=== PATIENT | female | born 1985 ===

== ENCOUNTER 2019-07-15 13:39 | Emergency (ER) | payer SELFPAY ==
--- NOTE | 2019-07-15 15:18 | ER Document Report ---
ED Extremity Problem, Lower - General Chief Complaint: Leg Pain Stated Complaint: MUSCLE PAIN/MEDICATION REFILL Time Seen by Provider: 07/15/19 15:14 Primary Care Provider: SANDY MCCANN PA-C [Primary Care Provider] - Follow up as needed Mode of Arrival: Medic Information source: Patient, Friend TRAVEL OUTSIDE OF THE [place] IN LAST 30 DAYS: No - HPI Patient complains to provider of: Other - leg spasms Location: Leg - [facility] staying [facility] and is accompanied by classification case manager. overhead line worker states pt. has been out of her clozapine for several days now and is requesting a refill as she doesn't see her psychiatrist until 07/26. - Related Data Allergies/Adverse Reactions: Penicillins Allergy (Verified 07/15/19 14:42) Hives Sulfa (Sulfonamide Antibiotics) Adverse Reaction (Verified 07/15/19 14:43) Past Medical History - Social History Smoking Status: Never Smoker Chew tobacco use (# tins/day): No Frequency of alcohol use: None Drug Abuse: None Family History: None Patient has suicidal ideation: No Patient has homicidal ideation: No Neurological Medical History: Reports: Hx Seizures - childhood Psychiatric Medical History: Reports: Hx Bipolar Disorder Review of Systems - Review of Systems Constitutional: No symptoms reported EENT: No symptoms reported Cardiovascular: No symptoms reported Respiratory: No symptoms reported Gastrointestinal: No symptoms reported Musculoskeletal: See HPI, Muscle pain - spasms Neurological/Psychological: No symptoms reported -: Yes All other systems reviewed and negative Physical Exam - Vital signs Vitals: Temp Pulse Resp BP Pulse Ox 98.4 F 87 18 139/95 H 98 07/15/19 13:57 07/15/19 13:57 07/15/19 13:57 07/15/19 13:57 07/15/19 13:57 - General General appearance: Appears well In distress: None - Respiratory Respiratory status: No respiratory distress Breath sounds: Normal - Cardiovascular Rhythm: Regular Heart sounds: Normal auscultation Murmur: No - Extremities General upper extremity: Normal inspection, Nontender General lower extremity: Normal inspection, Nontender - Neurological Neuro grossly intact: Yes Course - Re-evaluation Re-evalutation: 07/15/19 16:19 pt's exam unchanged at d/c -- will refill clozapine and classification case manager will take her back to retirement - Vital Signs Vital signs: Temp Pulse Resp BP Pulse Ox 98.4 F 87 18 139/95 H 98 07/15/19 13:57 07/15/19 13:57 07/15/19 13:57 07/15/19 13:57 07/15/19 13:57 Discharge - Discharge Clinical Impression: Leg muscle spasm Qualifiers: Laterality: bilateral Qualified Code(s): M62.838 - Other muscle spasm Condition: Stable Disposition: HOME, SELF-CARE Additional Instructions: rest, take meds as prescribed, return if worse Prescriptions: Clozapine [Clozapine Odt] 200 mg PO DAILY #10 tab.rapdis Referrals: SANDY MCCANN PA-C [Primary Care Provider] - Follow up as needed
[2019-07-15 16:42] VITALS: BP 121/77
== END 2019-07-15 16:36 | disposition home or self-care (01) ==
LOC: ER 13:39
DX: M62.838 Other muscle spasm (principal); F31.9 Bipolar disorder, unspecified; Z76.0 Encounter for issue of repeat prescription; Z88.0 Allergy status to penicillin; Z88.2 Allergy status to sulfonamides
CPT/HCPCS: 99283

== ENCOUNTER 2019-07-18 14:41 | Emergency (ER) | payer MEDICAID ==
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
[2019-07-18 16:38] LABS: APPEARANCE,URINE CLEAR; BILIRUBIN,URINE NEGATIVE (NEGATIVE); COLOR,URINE YELLOW; GLUCOSE, URINE NEGATIVE (NEGATIVE); KETONES,URINE TRACE mg/dL (NEGATIVE); LEUKOCYTE ESTERASE,URINE TRACE (NEGATIVE); NITRITE,URINE NEGATIVE (NEGATIVE); PROTEIN,URINE NEGATIVE (NEGATIVE); URINE SPECIFIC GRAVITY 1.019; UROBILINOGEN,URINE NEGATIVE mg/dL (<2.0)
[2019-07-18 16:56] LABS: URINE AMPHETAMINES SCREEN NEGATIVE; URINE BARBITURATES SCREEN NEGATIVE; URINE BENZODIAZEPINES SCREEN NEGATIVE; URINE COCAINE SCREEN NEGATIVE; URINE MARIJUANA (THC) SCREEN NEGATIVE; URINE METHADONE SCREEN NEGATIVE; URINE PHENCYCLIDINE SCREEN NEGATIVE
[2019-07-18 17:25] LABS: ABSOLUTE BASOPHILS # (AUTO) 0.1 10^3/uL (0.0-0.2); ABSOLUTE EOSINOPHILS # (AUTO) 0.1 10^3/uL (0.0-0.6); ABSOLUTE LYMPHOCYTES (AUTO) 2.7 10^3/uL (0.5-4.7); ABSOLUTE MONOCYTES (AUTO) 0.6 10^3/uL (0.1-1.4); ABSOLUTE NEUT (AUTO) 3.2 10^3/uL (1.7-8.2); BASOPHILS % (AUTO) 1.6 % (0-2); EOSINOPHILS % (AUTO) 1.3 % (0-6); HEMATOCRIT 37.9 % (36.0-47.0); HEMOGLOBIN 12.3 g/dL (12.0-15.5); LYMPHOCYTES % (AUTO) 40.6 % (13-45); MEAN CORPUSCULAR HEMOGLOBIN 29.1 pg (27.0-33.4); MEAN CORPUSCULAR HGB CONC 32.5 g/dL (32.0-36.0); MEAN CORPUSCULAR VOLUME 89 fl (80-97); MONOCYTES % (AUTO) 8.5 % (3-13); PLATELET COUNT 205 10^3/uL (150-450); RED BLOOD COUNT 4.24 10^6/uL (3.72-5.28); RED CELL DISTRIBUTION WIDTH 13.8 % (11.5-14.0); TOTAL CELLS COUNTED % (AUTO) 100 %; WHITE BLOOD COUNT 6.7 10^3/uL (4.0-10.5)
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
[2019-07-18 17:55] LABS: ALBUMIN 4.2 g/dL (3.5-5.0); ALKALINE PHOSPHATASE 56 U/L (38-126); ANION GAP 9 (5-19); ASPARTATE AMINO TRANSFERASE 25 U/L (14-36); BILIRUBIN,DIRECT 0.1 mg/dL (0.0-0.4); BILIRUBIN,TOTAL 0.4 mg/dL (0.2-1.3); BLOOD UREA NITROGEN 14 mg/dL (7-20); CALCIUM 9.8 mg/dL (8.4-10.2); CARBON DIOXIDE 27 mmol/L (22-30); CHLORIDE 103 mmol/L (98-107); GLUCOSE 79 mg/dL (75-110); POTASSIUM 4.2 mmol/L (3.6-5.0); TOTAL PROTEIN 7.3 g/dL (6.3-8.2)
[2019-07-18 17:58] LABS: ACETAMINOPHEN < 10 ug/mL (10-30); ALCOHOL < 10 mg/dL (NONE DETECTED); SALICYLATE < 1.0 mg/dL (2.0-20.0)
--- NOTE | 2019-07-18 20:58 | EKG REPORT ---
SEVERITY:- NORMAL ECG - SINUS RHYTHM : Confirmed by: Kiana Toribio MD 18-Jul-2019 20:57:49
[2019-07-19] MEDS: LORATADINE 10 MG TABLET PO SCH ×2 (01:04→09:46)
[2019-07-19] MEDS ORDERED: (PENDING PHARMACY ID) (Divalproex Sodium [Depakote] 500 MG) PO SCH (16:15)
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
[2019-07-19] MEDS: POLYETHYLENE GLYCOL 3350 POWDER 17 GM/1 PACKET PO SCH (17:44)
[2019-07-19] MEDS: ZINC OXIDE 20% OINTMENT 28.35 GM TP SCH (17:44)
[2019-07-19] MEDS: GLYCOPYRROLATE 1 MG TABLET PO SCH (17:45)
[2019-07-19] MEDS: FAMOTIDINE 20 MG TABLET PO SCH (17:45)
[2019-07-19] MEDS: LAMOTRIGINE 100 MG TABLET PO SCH (21:34)
[2019-07-19] MEDS: ARIPIPRAZOLE 5 MG TABLET PO SCH (21:34)
[2019-07-19] MEDS: CLOZAPINE 100 MG TABLET PO SCH (21:35)
[2019-07-19] MEDS: DOCUSATE SODIUM 100 MG CAPSULE PO SCH (21:35)
[2019-07-19] MEDS: DIVALPROEX SODIUM 250 MG TABLET.DR PO SCH (21:35)
[2019-07-19] MEDS: OXYBUTYNIN CHLORIDE 5 MG TABLET PO SCH (21:35)
[2019-07-19] MEDS: LAMOTRIGINE 25 MG TAB.CHEW PO SCH (21:36)
[2019-07-19] MEDS: SENNOSIDES/DOCUSATE 8.6-50 MG 1 EACH TABLET PO SCH (21:36)
[2019-07-19] MEDS ORDERED: (PENDING PHARMACY ID) (Oxybutynin Chloride [Oxybutynin Chloride Er] 15 MG) PO SCH (22:00)
[2019-07-19] MEDS ORDERED: (PENDING PHARMACY ID) (Lamotrigine [Lamictal] 25 MG) PO SCH (22:00)
[2019-07-19] MEDS ORDERED: ARIPIPRAZOLE 20 MG PO SCH (22:00)
[2019-07-19] MEDS ORDERED: (PENDING PHARMACY ID) (Divalproex Sodium [Depakote] 1,500 MG) PO SCH (22:00)
[2019-07-19] MEDS ORDERED: (PENDING PHARMACY ID) (Sennosides [Senokot] 17.2 MG) PO SCH (22:00)
[2019-07-19] MEDS ORDERED: (PENDING PHARMACY ID) (Lamotrigine [Lamictal] 200 MG) PO SCH (22:00)
[2019-07-19] MEDS ORDERED: CLOZAPINE 200 MG PO SCH (22:00)
[2019-07-20] MEDS: OXYBUTYNIN CHLORIDE 5 MG TABLET PO SCH ×3 (06:00→22:48)
[2019-07-20] MEDS: ZINC OXIDE 20% OINTMENT 28.35 GM TP SCH ×2 (10:06→19:10)
[2019-07-20] MEDS: DIVALPROEX SODIUM 250 MG TABLET.DR PO SCH ×2 (10:32→21:31)
[2019-07-20] MEDS: FAMOTIDINE 20 MG TABLET PO SCH (10:32)
[2019-07-20] MEDS: POLYETHYLENE GLYCOL 3350 POWDER 17 GM/1 PACKET PO SCH (10:33)
[2019-07-20] MEDS: LORATADINE 10 MG TABLET PO SCH (10:33)
[2019-07-20] MEDS: GLYCOPYRROLATE 1 MG TABLET PO SCH ×3 (10:34→19:25)
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
--- NOTE | 2019-07-20 14:15 | ER Document Report ---
Doctor's Note Notes: 07/20/19 14:13 Patient is alert and oriented 4. Nurse's notes reviewed. vss. mood is euthymic with normal affect. Patient denies any suicidal, homicidal ideations, intent, plan needs. Patient denies any auditory and visual hallucinations, delusions none noted. Thought processes are guarded but not organized. Conve rsational speech within normal limits for rate, tone, prosody. Intellectual abilities are estimated within average range. Attention and focus are fair. Insight, judgment, impulse control are poor. Awaiting for placement which will likely happen tomorrow. GENERAL: Well-appearing, well-nourished and in no acute distress. HEAD: Atraumatic, normocephalic. EYES: Pupils equal round and reactive to light, extraocular movements intact, conjunctiva are normal. NECK: Normal range of motion, supple without lymphadenopathy LUNGS: Breath sounds clear to auscultation bilaterally and equal. No wheezes rales or rhonchi. HEART: Regular rate and rhythm without murmurs ABDOMEN: Soft, nontender, nondistended abdomen. No guarding, no rebound. No masses appreciated. Musculoskeletal: Normal range of motion, no pitting or edema. No cyanosis. NEUROLOGICAL: Cranial nerves grossly intact. Normal speech, normal gait. Normal sensory, motor exams PSYCH: Normal mood, normal affect. SKIN: Warm, Dry, normal turgor, no rashes or lesions noted.
[2019-07-20] MEDS ORDERED: IBUPROFEN 800 MG TABLET PO ONE (17:33)
[2019-07-20] MEDS ORDERED: ACETAMINOPHEN 325 MG TABLET PO ONE (17:33)
--- NOTE | 2019-07-20 17:44 | ER Document Report ---
Doctor's Note Notes: 07/20/192044 1730-reported fever 102.8, patient started with the Clazuril 200 mg p.o. last night, this was the first time she was given this over 2 weeks. 1 of the common side effects of taking this medication is fever however will work-up fever as well as treat with ibuprofen and Tylenol accordingly. Awaiting for rapid strep, urinalysis and chest x-ray. Patient does appear to be lethargic, will reassess after fever has been reduced. Aside from temperature, vital signs are stable. On reevaluation patient's temperature reduced down to 100.9,Patient reevaluated at bedside. rapid strep was positive, will be treated accordingly, CBC and CMP unremarkable, chest x-ray unremarkable. Fever reduced, patient became more alert. Disposition given to Yong Thapa at 201407/22/19 13:51
[2019-07-20] MEDS ORDERED: ACETAMINOPHEN SUSP 160 MG/5 ML ORAL SYRING PO ONE (18:17)
[2019-07-20] MEDS ORDERED: ACETAMINOPHEN 650 MG SUPP.RECT PR ONE (18:18)
--- NOTE | 2019-07-20 18:56 | RADIOLOGY REPORT (SQ) ---
EXAM DESCRIPTION: CHEST SINGLE VIEW COMPLETED DATE/TIME: 07/20/2019 5:51 pm REASON FOR STUDY: Fever of unknown source COMPARISON: None. EXAM PARAMETERS: NUMBER OF VIEWS: One view. TECHNIQUE: Single frontal radiographic view of the chest acquired. RADIATION DOSE: NA LIMITATIONS: None. FINDINGS: LUNGS AND PLEURA: Low lung volumes. No infiltrate, effusion, or mass. MEDIASTINUM AND HILAR STRUCTURES: No masses. Contour normal. HEART AND VASCULAR STRUCTURES: Heart normal in size. Normal vasculature. BONES: No acute findings. HARDWARE: None in the chest. OTHER: No other significant finding. IMPRESSION: Low lung volumes. No acute cardiopulmonary finding. TECHNICAL DOCUMENTATION: JOB ID: [id number] [employer]- All Rights Reserved Reading location - IP/workstation name: [email or web address]
[2019-07-20 19:15] LABS: ABSOLUTE EOSINOPHILS # (AUTO) 0.1 10^3/uL (0.0-0.6); ABSOLUTE LYMPHOCYTES (AUTO) 1.8 10^3/uL (0.5-4.7); ABSOLUTE NEUT (AUTO) 7.4 10^3/uL (1.7-8.2); BASOPHILS % (AUTO) 0.3 % (0-2); EOSINOPHILS % (AUTO) 1.1 % (0-6); HEMATOCRIT 40.9 % (36.0-47.0); HEMOGLOBIN 13.4 g/dL (12.0-15.5); LYMPHOCYTES % (AUTO) 17.1 % (13-45); MEAN CORPUSCULAR HEMOGLOBIN 28.9 pg (27.0-33.4); MEAN CORPUSCULAR HGB CONC 32.8 g/dL (32.0-36.0); MEAN CORPUSCULAR VOLUME 88 fl (80-97); MONOCYTES % (AUTO) 9.5 % (3-13); PLATELET COUNT 199 10^3/uL (150-450); RED BLOOD COUNT 4.64 10^6/uL (3.72-5.28); RED CELL DISTRIBUTION WIDTH 13.6 % (11.5-14.0); TOTAL CELLS COUNTED % (AUTO) 100 %; WHITE BLOOD COUNT 10.3 10^3/uL (4.0-10.5)
[2019-07-20 19:16] LABS: VENOUS BLOOD BASE EXCESS 3.4 mmol/L; VENOUS BLOOD HCO3 28.4 mmol/L (20-32); VENOUS BLOOD PCO2 44.1 mmHg (35-63); VENOUS BLOOD PH 7.43 (7.30-7.42)
[2019-07-20 19:33] LABS: ALBUMIN 3.9 g/dL (3.5-5.0); ALKALINE PHOSPHATASE 64 U/L (38-126); ANION GAP 8 (5-19); ASPARTATE AMINO TRANSFERASE 27 U/L (14-36); BILIRUBIN,DIRECT 0.2 mg/dL (0.0-0.4); BILIRUBIN,TOTAL 0.4 mg/dL (0.2-1.3); BLOOD UREA NITROGEN 9 mg/dL (7-20); CALCIUM 9.3 mg/dL (8.4-10.2); CARBON DIOXIDE 27 mmol/L (22-30); CHLORIDE 102 mmol/L (98-107); GLUCOSE 100 mg/dL (75-110); POTASSIUM 4.3 mmol/L (3.6-5.0); TOTAL PROTEIN 7.1 g/dL (6.3-8.2)
[2019-07-20] MEDS ORDERED: AZITHROMYCIN 250 MG TABLET PO ONE (20:26)
[2019-07-20] MEDS: SENNOSIDES/DOCUSATE 8.6-50 MG 1 EACH TABLET PO SCH (21:20)
[2019-07-20] MEDS: ARIPIPRAZOLE 5 MG TABLET PO SCH (21:30)
[2019-07-20] MEDS: DOCUSATE SODIUM 100 MG CAPSULE PO SCH (21:31)
[2019-07-20] MEDS: LAMOTRIGINE 25 MG TAB.CHEW PO SCH (21:31)
[2019-07-20] MEDS: CLOZAPINE 100 MG TABLET PO SCH (21:31)
[2019-07-20] MEDS: LAMOTRIGINE 100 MG TABLET PO SCH (21:31)
[2019-07-20 22:55] LABS: APPEARANCE,URINE CLEAR; BILIRUBIN,URINE NEGATIVE (NEGATIVE); COLOR,URINE YELLOW; GLUCOSE, URINE NEGATIVE (NEGATIVE); KETONES,URINE 20 mg/dL (NEGATIVE); LEUKOCYTE ESTERASE,URINE NEGATIVE (NEGATIVE); NITRITE,URINE NEGATIVE (NEGATIVE); PROTEIN,URINE NEGATIVE (NEGATIVE); URINE SPECIFIC GRAVITY 1.011; UROBILINOGEN,URINE NEGATIVE mg/dL (<2.0)
[2019-07-21] MEDS: OXYBUTYNIN CHLORIDE 5 MG TABLET PO SCH (05:01)
[2019-07-21 11:33] VITALS: BP 126/82
[2019-07-21] MEDS: FAMOTIDINE 20 MG TABLET PO SCH (12:07)
[2019-07-21] MEDS: LORATADINE 10 MG TABLET PO SCH (12:07)
[2019-07-21] MEDS: DIVALPROEX SODIUM 250 MG TABLET.DR PO SCH (12:07)
[2019-07-21] MEDS: GLYCOPYRROLATE 1 MG TABLET PO SCH (12:08)
[2019-07-21] MEDS: ZINC OXIDE 20% OINTMENT 28.35 GM TP SCH (12:09)
[2019-07-21] MEDS: POLYETHYLENE GLYCOL 3350 POWDER 17 GM/1 PACKET PO SCH (12:10)
--- NOTE | 2019-07-21 13:35 | ER Document Report ---
Doctor's Note Notes: 07/21/19 13:30 PHYSICAL EXAMINATION: GENERAL: Well-appearing and in no acute distress. HEAD: Atraumatic, normocephalic. EYES: Left eye strabismus, sclera anicteric, conjunctiva are normal. ENT: nares patent, oropharynx clear without exudates. Moist mucous membranes. NECK: Normal range of motion, supple without lymphadenopathy LUNGS: CTAB and equal. No wheezes rales or rhonchi. HEART: Regular rate and rhythm without murmurs ABDOMEN: Soft, no tenderness. No guarding, no rebound EXTREMITIES: Normal range of motion, no pitting edema. No cyanosis. BACK: No midline tenderness, no CVA tenderness. NEUROLOGICAL: Cranial nerves grossly intact. PSYCH: Normal mood, normal affect. SKIN: Warm, Dry, normal turgor, no rashes or lesions noted Patient resting calmly in room. Patient denies any complaints. Patient states that she is hungry and is awaiting her lunch tray. Patient denies any suicidal or homicidal ideation. Patient reports feeling drowsy after taking her medications. Vital signs reviewed as well as diagnostic test results. Mental health team feels that patient's drowsiness is attributed to the side effects of her restarting her medications. Patient appears medically clear for discharge transfer her mental health recommendations. Mental health team feels that patient is stable for discharge at this time. Patient does have a refill of her prescription for her clozaril and the pharmacy has agreed to fill this medication which is what precipitated her presenting to the emergency depar tment, after she became aggressive after being off of her usual medications. Patient's care providers at [facility] are agreeable with discharge plan of care and will be here to pick patient up around 130. Patient does have an appointment with her mental health provider see [facility] in [address] Aceves who is in agreement with this plan of care.
[2019-07-21] MEDS ORDERED: KETOCONAZOLE 2% SHAMPOO 120 ML BOTTLE TP SCH (18:00)
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
== END 2019-07-21 16:40 | disposition home or self-care (01) ==
LOC: ER 14:41
DX: J02.0 Streptococcal pharyngitis (principal); F25.0 Schizoaffective disorder, bipolar type; M62.838 Other muscle spasm; F91.9 Conduct disorder, unspecified; R09.89 Other specified symptoms and signs involving the circulatory and respiratory systems; Z86.59 Personal history of other mental and behavioral disorders
CPT/HCPCS: 93005; 99285; 36415; 87040; 87880; 80307 ×4; 83735; 84703; 85025; 80053; 80175; 81001; 80164; 82803; 83605; 93010; J3490 ×30; Q0144

== ENCOUNTER 2019-07-26 13:56 | Emergency (ER) | payer SELFPAY ==
--- NOTE | 2019-07-26 14:23 | ER Document Report ---
ED Medical Screen (RME) - General Chief Complaint: Medication Refill Stated Complaint: ALTERED MENTAL STATUS Time Seen by Provider: 07/26/19 14:13 Primary Care Provider: SANDY MCCANN PA-C [Primary Care Provider] - Follow up as needed Notes: Patient is a 33-year-old female who presents to the emergency department after becoming agitated at her [facility]. Patient was just recently here in the hospital and evaluated by mental health. She was discharged 5 days ago. Apparently her clonazepine cannot be refilled because she was dismissed from the run program. She has not been taking her clonazepine since she was discharged from [facility]. Exam: Talkative. I have greeted and performed a rapid initial assessment of this patient. A comprehensive ED assessment and evaluation of the patient, analysis of test results and completion of medical decision making process will be conducted by an additional ED providers. TRAVEL OUTSIDE OF THE [place] IN LAST 30 DAYS: No - Related Data Allergies/Adverse Reactions: Penicillins Allergy (Verified 07/26/19 14:11) Hives Sulfa (Sulfonamide Antibiotics) Adverse Reaction (Verified 07/26/19 14:11) Home Medications: see list on chart Past Medical History - Social History Chew tobacco use (# tins/day): No Frequency of alcohol use: None Drug Abuse: None Neurological Medical History: Reports: Hx Seizures - childhood Psychiatric Medical History: Reports: Hx Bipolar Disorder Doctor's Discharge - Discharge Referrals: SANDY MCCANN PA-C [Primary Care Provider] - Follow up as needed
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
[2019-07-26 17:54] LABS: ABSOLUTE BASOPHILS # (AUTO) 0.1 10^3/uL (0.0-0.2); ABSOLUTE EOSINOPHILS # (AUTO) 0.1 10^3/uL (0.0-0.6); ABSOLUTE LYMPHOCYTES (AUTO) 3.4 10^3/uL (0.5-4.7); ABSOLUTE MONOCYTES (AUTO) 0.6 10^3/uL (0.1-1.4); ABSOLUTE NEUT (AUTO) 3.2 10^3/uL (1.7-8.2); BASOPHILS % (AUTO) 0.8 % (0-2); EOSINOPHILS % (AUTO) 1.6 % (0-6); HEMATOCRIT 36.2 % (36.0-47.0); HEMOGLOBIN 11.6 g/dL (12.0-15.5); LYMPHOCYTES % (AUTO) 45.9 % (13-45); MEAN CORPUSCULAR HEMOGLOBIN 28.3 pg (27.0-33.4); MEAN CORPUSCULAR HGB CONC 32.2 g/dL (32.0-36.0); MEAN CORPUSCULAR VOLUME 88 fl (80-97); MONOCYTES % (AUTO) 8.7 % (3-13); PLATELET COUNT 245 10^3/uL (150-450); RED BLOOD COUNT 4.12 10^6/uL (3.72-5.28); RED CELL DISTRIBUTION WIDTH 13.7 % (11.5-14.0); TOTAL CELLS COUNTED % (AUTO) 100 %; WHITE BLOOD COUNT 7.5 10^3/uL (4.0-10.5)
--- NOTE | 2019-07-26 18:01 | RADIOLOGY REPORT (SQ) ---
EXAM DESCRIPTION: SOFT TISSUE NECK COMPLETED DATE/TIME: 07/26/2019 5:41 pm REASON FOR STUDY: freq cough, hx strep COMPARISON: None. NUMBER OF VIEWS: Two views. TECHNIQUE: AP and lateral radiographic image of the soft tissues of the neck. LIMITATIONS: None. FINDINGS: EPIGLOTTIS: Normal. Contour normal. Aryepiglottic folds normal. PREVERTEBRAL SOFT TISSUES: Normal. No soft tissue swelling. SUBGLOTTIC AREA: Normal. No narrowing. RETROPHARYNGEAL SPACE: Normal. No soft tissue masses. BONES: No significant findings. LUNG APICES: Pulmonary vascular congestion. OTHER: No radiopaque foreign body. No other significant finding. IMPRESSION: Pulmonary vascular congestion. No acute findings in the neck. TECHNICAL DOCUMENTATION: JOB ID: [id number] 1926[employer]- All Rights Reserved Reading location - IP/workstation name: [email or web address]
[2019-07-26 18:14] LABS: ALKALINE PHOSPHATASE 56 U/L (38-126); ANION GAP 9 (5-19); ASPARTATE AMINO TRANSFERASE 27 U/L (14-36); BILIRUBIN,DIRECT 0.1 mg/dL (0.0-0.4); BILIRUBIN,TOTAL 0.4 mg/dL (0.2-1.3); BLOOD UREA NITROGEN 12 mg/dL (7-20); CALCIUM 9.5 mg/dL (8.4-10.2); CARBON DIOXIDE 26 mmol/L (22-30); CHLORIDE 103 mmol/L (98-107); GLUCOSE 82 mg/dL (75-110); TOTAL PROTEIN 7.2 g/dL (6.3-8.2)
[2019-07-26 18:15] LABS: ACETAMINOPHEN < 10 ug/mL (10-30); ALCOHOL < 10 mg/dL (NONE DETECTED); SALICYLATE < 1.0 mg/dL (2.0-20.0)
[2019-07-26] MEDS: GLYCOPYRROLATE 1 MG TABLET PO SCH (19:02)
[2019-07-26] MEDS ORDERED: BENZONATATE 100 MG CAPSULE PO ONE (20:14)
[2019-07-26] MEDS ORDERED: ZIPRASIDONE MESYLATE INJ/PF 20 MG SDV IM ONE (20:37)
[2019-07-26 21:40] LABS: APPEARANCE,URINE SLIGHTLY-CLOUDY; BILIRUBIN,URINE NEGATIVE (NEGATIVE); COLOR,URINE YELLOW; GLUCOSE, URINE NEGATIVE (NEGATIVE); KETONES,URINE TRACE mg/dL (NEGATIVE); LEUKOCYTE ESTERASE,URINE TRACE (NEGATIVE); NITRITE,URINE NEGATIVE (NEGATIVE); PROTEIN,URINE NEGATIVE (NEGATIVE); URINE SPECIFIC GRAVITY 1.012; UROBILINOGEN,URINE NEGATIVE mg/dL (<2.0)
[2019-07-26 21:52] LABS: URINE AMPHETAMINES SCREEN NEGATIVE; URINE BARBITURATES SCREEN NEGATIVE; URINE BENZODIAZEPINES SCREEN NEGATIVE; URINE COCAINE SCREEN NEGATIVE; URINE MARIJUANA (THC) SCREEN NEGATIVE; URINE METHADONE SCREEN NEGATIVE; URINE PHENCYCLIDINE SCREEN NEGATIVE
[2019-07-27] MEDS: ARIPIPRAZOLE 5 MG TABLET PO SCH ×2 (01:27→21:22)
[2019-07-27] MEDS: CLOZAPINE 100 MG TABLET PO SCH ×2 (01:27→21:22)
[2019-07-27] MEDS: LAMOTRIGINE 100 MG TABLET PO SCH ×2 (01:27→21:24)
[2019-07-27] MEDS: DIVALPROEX SODIUM 250 MG TABLET.DR PO SCH ×3 (01:27→21:21)
[2019-07-27] MEDS: DOCUSATE SODIUM 100 MG CAPSULE PO SCH ×2 (01:27→21:21)
[2019-07-27] MEDS: LAMOTRIGINE 25 MG TAB.CHEW PO SCH ×3 (01:28→21:42)
[2019-07-27] MEDS ORDERED: ZIPRASIDONE MESYLATE INJ/PF 20 MG SDV IM ONE ×2 (02:04→21:39)
--- NOTE | 2019-07-27 07:44 | EKG REPORT ---
SEVERITY:- ABNORMAL ECG - SINUS RHYTHM MILD DIFFUSE NONSPECIFIC ST CHANGES : Confirmed by: David Mcguire MD 27-Jul-2019 07:43:47
[2019-07-27] MEDS: FAMOTIDINE 20 MG TABLET PO SCH (09:28)
[2019-07-27] MEDS: GLYCOPYRROLATE 1 MG TABLET PO SCH ×3 (09:28→17:05)
--- NOTE | 2019-07-27 12:11 | ER Document Report ---
Doctor's Note Notes: 07/27/19 12:04 33-year-old female IVC need for acute schizophrenic disorder, intellectual disability, PTSD. Vital signs stable. Nurse's, provider's and mental health note reviewed. afebrile. Clinical examination unremarkable. Patient denies any medical needs at this time. Patient is sitting in bed and watching TV at this time. PHYSICAL EXAMINATION: reviewed vital signs by RN GENERAL: Well-appearing, well-nourished and in no acute distress. HEAD: Atraumatic, normocephalic. EYES: Pupils equal round and reactive to light, extraocular movements intact, conjunctiva are normal. ENT: Nares patent, oropharynx clear without exudates. Moist mucous membranes. NECK: Normal range of motion, supple without lymphadenopathy LUNGS: Breath sounds clear to auscultation bilaterally and equal. No wheezes rales or rhonchi. HEART: Regular rate and rhythm without murmurs ABDOMEN: Soft, nontender, nondistended abdomen. No guarding, no rebound. No masses appreciated. Musculoskeletal: Normal range of motion, no pitting or edema. No cyanosis. NEUROLOGICAL: Cranial nerves grossly intact. Normal speech, normal gait. Normal sensory, motor exams PSYCH: Normal mood, normal affect. SKIN: Warm, Dry, normal turgor, no rashes or lesions noted.
[2019-07-28] MEDS: GLYCOPYRROLATE 1 MG TABLET PO SCH ×4 (10:21→18:14)
[2019-07-28] MEDS: DIVALPROEX SODIUM 250 MG TABLET.DR PO SCH ×2 (10:21→23:30)
[2019-07-28] MEDS: FAMOTIDINE 20 MG TABLET PO SCH (10:22)
--- NOTE | 2019-07-28 12:17 | ER Document Report ---
Doctor's Note Notes: 07/28/19 11:30 PHYSICAL EXAMINATION: GENERAL: Well-appearing and in no acute distress. HEAD: Atraumatic, normocephalic. EYES: extraocular movements intact, sclera anicteric, conjunctiva are normal. ENT: nares patent, Moist mucous membranes. NECK: Normal range of motion, supple without lymphadenopathy LUNGS: CTAB and equal. No wheezes rales or rhonchi. HEART: Regular rate and rhythm without murmurs ABDOMEN: Soft, no tenderness. No guarding, no rebound EXTREMITIES: Normal range of motion BACK: No midline tenderness, no step-off or deformity. NEUROLOGICAL: Cranial nerves grossly intact. Normal speech. Normal gait. PSYCH: Normal mood, normal affect. Patient with tangential speech, no psychomotor agitation SKIN: Warm, Dry, normal turgor, no rashes or lesions noted 07/28/19 12:10 Reviewed patient's diagnostic evaluation laboratory tests as well as vital signs and nursing note. Patient stable for discharge or transfer pending psychiatric consultation. Spoke with pharmacy staff about patient's medication Clozaril. Patient has been off of medication for 2 weeks aside from a single dose when she was seen in the ER on 07/20/2019. Patient has reportedly been dropped from the our EMS program and is in the process of getting reenrolled. Pharmacy staff states that they cannot give any recommendations about what to start the drug dose at at this time without consultation with the button clamper. Pharmacy staff recommend consultation with patient's prescribing doctor for recommendations. Mental health team states that patient was not given medication last night as she refused medication. 07/28/19 12:33 Spoke with Constanza Yun of the nurses at [facility] about patient's prescription for her clozapine. Constanza states that patient was just established as a new patient there 3 days ago. She further states that prescription was advised for patient to take clozapine 100 mg for a week and then increase to 200 mg thereafter. States that if we can fax her patient's most recent CBC she can look at getting patient reenrolled in the rems program because she needs to have been transferred from her prior facility to their facility so that she can continue to get her prescription. Toy with the mental health team advised of this and order will be placed for patient's clozapine to be given at 100 mg for 1 week and then increase to 200 mg thereafter. 07/28/19 12:51 Spoke with Constanza teran at [facility] who states that patient is a registered in the our EMS program with [facility] and that [facility] should be able to fill her prescription as written. 07/28/19 17:55 Patient refusing to take her evening dose of Robinul, spoke with pharmacy staff about what dose could be given IM as patient typically takes 2 mg 3 times daily. Pharmacist was not certain on the conversion but advised giving 0.2 mg IM.
--- NOTE | 2019-07-28 16:48 | PSYCHOLOGICAL NOTE ---
Psych Note - Psych Note Date seen by psych provider: 07/28/19 Psych Note: Patient has continued to be unable to achieve stability (patient has been here since 07/26/2019) due to not receiving evening doses of medications. Patient is currently under IVC paperwork. Patient is unable to refuse medications. In order to achieve stabilization the patient must receive this medication; please wake patient in order to provide this medication. Unfortunately, this patient is unable to go inpatient psychiatric treatment to standard psychiatric hospitals due to her mental health and intellectual disability. Stabilization must occur here in the emergency department with plan to discharge to her [facility]. The behavioral health team has been working diligently with [facility], attending physicians, and pharmacy in order to ensure the patient is able to continue taking her prescribed medications she was stabilized on in [facility]. Clinician notes patient was discharged approximately 3 to 4 weeks ago from [facility] on this medication. Unfortunately, when [place] new [place] (patient [place] a perdue of [place]), the REMS program that is needed to be transferred to her new location which did not occur in a timely fashion.
[2019-07-28] MEDS ORDERED: GLYCOPYRROLATE INJ 0.4 MG/2 ML VIAL IM ONE (17:53)
[2019-07-28] MEDS ORDERED: CLOZAPINE 100 MG TABLET PO SCH (22:00)
[2019-07-28] MEDS: LAMOTRIGINE 100 MG TABLET PO SCH (23:30)
[2019-07-28] MEDS: DOCUSATE SODIUM 100 MG CAPSULE PO SCH (23:30)
[2019-07-28] MEDS: ARIPIPRAZOLE 5 MG TABLET PO SCH (23:30)
[2019-07-28] MEDS: LAMOTRIGINE 25 MG TAB.CHEW PO SCH (23:30)
[2019-07-29] MEDS ORDERED: LORAZEPAM INJ 2 MG/1 ML VIAL IM ONE (00:07)
[2019-07-29] MEDS ORDERED: ZIPRASIDONE MESYLATE INJ/PF 20 MG SDV IM ONE (00:08)
--- NOTE | 2019-07-29 00:10 | ER Document Report ---
Doctor's Note Notes: 07/29/19 00:09 Notified by nursing that patient is still extremely agitated. She is still talking to herself, yelling out intermittently. She is spitting out all of her medications, despite multiple attempts to get her to take them. Decision was made to proceed with Geodon 20 mill grams IM, Ativan 2 mg IM. Restraints r eordered, will reevaluate.
[2019-07-29] MEDS: DIVALPROEX SODIUM 250 MG TABLET.DR PO SCH (10:08)
[2019-07-29] MEDS: FAMOTIDINE 20 MG TABLET PO SCH (10:08)
[2019-07-29] MEDS: GLYCOPYRROLATE 1 MG TABLET PO SCH ×3 (10:08→17:58)
--- NOTE | 2019-07-29 11:15 | ER Document Report ---
Doctor's Note Notes: 07/29/19 12:15 S: Patient in the emergency department after 58 hours after she presented with altered mental status and acute decline in her schizophrenia. She was evaluated by psychiatry when she came to the emergency department on July 26. She has been without her psychotropic medications for almost 3 weeks now. She has an intellectual delays that she is monitored closely by APS. She states that she is doing well this morning and that she has no SI, HI, or hallucinations. She difficult to elicit a history from as she moves from topic to topic fairly quickly and avoids answering quite a few questions for me. There is been difficulty getting her to take her Clozaril particularly overnight. Last night she had to be placed in soft restraints and had to be given Geodon and Ativan as she became aggressive with staff. She is much better today and has not been aggressive with staff. Spoke with Toy her toll testboard worker and prior to her being able to place her the patient needs to stabilize with her psychosis. Because relatives are drug of choice and we will need to try to get her to take the medicine today. I have discussed with patient how I will order the Clazuril and asked her to take the medicine. She does know if this medicine is not states that she does not really need it. I advised her that getting her to take this medicine will help stabilize her and then help us get her disposition. Toy from crisis also states that we will need to redraw labs for trending and repeat EKG. I have made RN aware. O: Constitutional: Alert and in no acute distress. Cardiac: Regular rate and rhythm. No murmurs, gallops, rubs. Respiratory: Clear to auscultation bilaterally. No wheezes, rhonchi, rales. No respiratory distress. Abdomen: Nontender, soft, nondistended. Normal bowel sounds. Skin: No rash, no diaphoresis Neuro: Cranial nerves II through XII intact. No pronator drift. No leg drift. Oriented to person Psych: Flat and bizarre affect. Denies SI, HI, hallucinations. She moves from topic to topic and will not answer questions directly. A: Patient with acute decline in her schizophrenia she has not been on her medications for approximately 3 weeks. There is been some difficulty with getting her to take antipsychotics in the emergency department. She was given Geodon and Ativan last night because of this. I have ordered Clozaril for her to have today and we will see if she will be willing to take it. Toy for behavioral health would like for her to be stabilized further and after that we will start to seek placement. We will order labs for trending blood work. P: Currently we will continue to monitor the patient. Eventually when she stabilizes the plan will be to find inpatient placement. We will continue to monitor closely.
[2019-07-29] MEDS ORDERED: CLOZAPINE 100 MG TABLET PO ONE (13:02)
[2019-07-29 15:19] LABS: HEMATOCRIT 39.4 % (36.0-47.0); HEMOGLOBIN 12.9 g/dL (12.0-15.5); MEAN CORPUSCULAR HGB CONC 32.7 g/dL (32.0-36.0); MEAN CORPUSCULAR VOLUME 89 fl (80-97); PLATELET COUNT 293 10^3/uL (150-450); RED BLOOD COUNT 4.44 10^6/uL (3.72-5.28); RED CELL DISTRIBUTION WIDTH 13.6 % (11.5-14.0)
[2019-07-29 15:32] LABS: ALBUMIN 3.9 g/dL (3.5-5.0); ALKALINE PHOSPHATASE 61 U/L (38-126); ANION GAP 8 (5-19); ASPARTATE AMINO TRANSFERASE 34 U/L (14-36); BILIRUBIN,DIRECT 0.1 mg/dL (0.0-0.4); BILIRUBIN,TOTAL 0.3 mg/dL (0.2-1.3); BLOOD UREA NITROGEN 10 mg/dL (7-20); CALCIUM 9.5 mg/dL (8.4-10.2); CARBON DIOXIDE 28 mmol/L (22-30); CHLORIDE 103 mmol/L (98-107); GLUCOSE 132 mg/dL (75-110); TOTAL PROTEIN 7.1 g/dL (6.3-8.2)
[2019-07-29 15:55] LABS: ABSOLUTE LYMPHOCYTES# (MANUAL) 1.7 10^3/uL (0.5-4.7); ABSOLUTE MONOCYTES # (MANUAL) 0.7 10^3/uL (0.1-1.4); BASOPHILS % (MANUAL) 1 % (0-2); EOSINOPHILS % (MANUAL) 3 % (0-6); LYMPHOCYTES % (MANUAL) 28 % (13-45); MONOCYTES % (MANUAL) 11 % (3-13); SEGMENTED NEUTROPHILS % (MAN) 57 % (42-78); TOTAL CELLS COUNTED 100
[2019-07-29 15:56] LABS: ANISOCYTOSIS SLIGHT; PLATELET COMMENT ADEQUATE
--- NOTE | 2019-07-29 16:06 | PSYCHOLOGICAL NOTE ---
Psych Note - Psych Note Date seen by psych provider: 07/29/19 Psych Note: Medication recommendations per [facility]'s contracted psychiatrist Dr. Buck AGUILAR are as follows Please discontinue Lamictal and Abilify Please move Clozaril to a morning dose Please change the evening Depakote time to coincide with dinner and make him Depakote sprinkles so medication can be mixed with food Please add Thorazine 50 mg IM every 6 hours Impression plan: Patient is recommended to continue under involuntary commitment. Behavioral health team notes patient has continued to have difficulties receiving/taking medications and has not received a dose of Clozaril (She has been here for 3 days). This is the main medication that stabilizes the patient. It has been confirmed that the patient's outpatient mental health provider has reestablished her in the REMS program, so once stabilized she will be able to obtain Clozaril from her pharmacy. Typically stabilization only takes 1 or 2 days IF she receives her psychiatric medications. Patient has severely persistent mental health and her reactions to typically use second-generation antipsychotics in addition to benzodiazepines creates a paradoxical effect. Please do not use Geodon or Ativan. Dr. Trammell was consulted to care management this patient; attending physicians in agreement with recommendations and disposition.
[2019-07-29] MEDS ORDERED: CHLORPROMAZINE HCL INJ 25 MG/1 ML AMPULE IM SCH (17:00)
--- NOTE | 2019-07-29 17:11 | EKG REPORT ---
SEVERITY:- NORMAL ECG - SINUS RHYTHM : Confirmed by: David Mcguire MD 29-Jul-2019 17:10:30
[2019-07-29] MEDS ORDERED: CHLORPROMAZINE HCL INJ 25 MG/1 ML AMPULE IM PRN (17:36)
[2019-07-29] MEDS: DIVALPROEX SODIUM 125 MG CAP.SPRINK PO SCH (17:58)
[2019-07-29] MEDS ORDERED: DIVALPROEX SODIUM 250 MG TABLET.DR PO SCH (18:00)
[2019-07-29] MEDS: DOCUSATE SODIUM 100 MG CAPSULE PO SCH (23:22)
[2019-07-29] MEDS: LAMOTRIGINE 25 MG TAB.CHEW PO SCH (23:22)
[2019-07-30] MEDS: CLOZAPINE 100 MG TABLET PO SCH (08:58)
[2019-07-30] MEDS: GLYCOPYRROLATE 1 MG TABLET PO SCH ×4 (09:44→18:45)
[2019-07-30] MEDS: FAMOTIDINE 20 MG TABLET PO SCH (09:45)
[2019-07-30] MEDS: DIVALPROEX SODIUM 250 MG TABLET.DR PO SCH (09:46)
--- NOTE | 2019-07-30 17:09 | ER Document Report ---
Doctor's Note Notes: 07/30/19 17:07 S:Patient in the emergency department for 3 days after she presented with altered mental status and acute decline in her schizophrenia. She was evaluated by psychiatry when she came to the emergency department on July 26. She has been without her psychotropic medications for almost 3 weeks now. She has an intellectual delays that she is monitored closely by APS. She states that she is doing well this morning and that she has no SI, HI, or hallucinations. She is better today. We have been able to get the patient to take her Clozaril the past two days. O: Constitutional: Alert and in no acute distress. Cardiac: Regular rate and rhythm. No murmurs, gallops, rubs. Respiratory: Clear to auscultation bilaterally. No wheezes, rhonchi, rales. No respiratory distress. Abdomen: Nontender, soft, nondistended. Normal bowel sounds. Skin: No rash, no diaphoresis Neuro: Cranial nerves II through XII intact. No pronator drift. No leg drift. Oriented to person Psych: Flat and bizarre affect. Denies SI, HI, hallucinations. She moves from topic to topic and will not answer questions directly. A: Patient with acute decline in her schizophrenia and she also had an IDD. she has not been on her medications for approximately 3 weeks. Patient is doing better since being willing to take the Clozaril. P: Currently we will continue to monitor the patient. Eventually when she stabilizes the plan will be to find inpatient placement. We will continue to monitor closely.
[2019-07-30 17:25] LABS: APPEARANCE,URINE CLEAR; BILIRUBIN,URINE NEGATIVE (NEGATIVE); COLOR,URINE YELLOW; GLUCOSE, URINE NEGATIVE (NEGATIVE); KETONES,URINE TRACE mg/dL (NEGATIVE); LEUKOCYTE ESTERASE,URINE NEGATIVE (NEGATIVE); NITRITE,URINE NEGATIVE (NEGATIVE); PROTEIN,URINE NEGATIVE (NEGATIVE); URINE SPECIFIC GRAVITY 1.011; UROBILINOGEN,URINE NEGATIVE mg/dL (<2.0)
--- NOTE | 2019-07-30 17:35 | PSYCHOLOGICAL NOTE ---
Psych Note - Psych Note Date seen by psych provider: 07/30/19 Time seen by psych provider: 08:50 Psych Note: ate seen by psych provider: 07/30/19 Psych Note: Clinician checked on patient. Patient was eating breakfast. Patient made eye contact and engaged clinician in pleasant conversation about patient's "songs." Patient expressed "being uncomfortable" regarding "being touched [referencing nursing staff]." Patient unable to engage in linear, reality based conversation. Patient recognized, and then engaged in appropriate self hygiene after defecating on herself. Clinician spoke with attending ER physician regarding treatment of patient's urinary tract infection. DSM Diagnosis: IDD by HX Schizoaffective Disorder, Bipolar Type by Hx PTSD by Hx Medication recommendations per [facility]'s contracted psychiatrist Dr. Buck AGUILAR are as follows Please discontinue Lamictal and Abilify Please move Clozaril to a morning dose Please decrease the evening Depakote dose to 500MG sprinkles at supper Please add Thorazine 50 mg IM every 6 hours Impression plan: Patient is recommended to continue under involuntary commitment. Behavioral health team notes patient has some status improvement since receiving two doses of Clozaril. This is the main medication that stabilizes the patient. It has been confirmed that the patient's outpatient mental health provider has reestablished her in the REMS program. Typically stabilization only takes 1 or 2 days IF she receives her psychiatric medications. Patient has severely persistent mental health and her reactions to typically use second-generation antipsychotics in addition to benzodiazepines creates a paradoxical effect. Please do not use Geodon or Ativan. Dr. Trammell was consulted to care management this patient; attending physicians in agreement with recommendations and disposition.
[2019-07-30] MEDS ORDERED: DIVALPROEX SODIUM 125 MG CAP.SPRINK PO ONE (18:00)
[2019-07-30] MEDS: DIVALPROEX SODIUM 125 MG CAP.SPRINK PO SCH (18:46)
[2019-07-30] MEDS ORDERED: OXYMETAZOLINE HCL 0.05% NASAL SPRAY 15 ML BOTTLE NASL ONE (18:49)
[2019-07-30] MEDS: LAMOTRIGINE 25 MG TAB.CHEW PO SCH (22:23)
[2019-07-30] MEDS: DOCUSATE SODIUM 100 MG CAPSULE PO SCH (22:23)
[2019-07-31] MEDS: GLYCOPYRROLATE 1 MG TABLET PO SCH ×3 (09:15→17:43)
[2019-07-31] MEDS: FAMOTIDINE 20 MG TABLET PO SCH (09:16)
[2019-07-31] MEDS: DIVALPROEX SODIUM 250 MG TABLET.DR PO SCH (09:16)
[2019-07-31] MEDS: CLOZAPINE 100 MG TABLET PO SCH (09:18)
[2019-07-31 11:39] VITALS: BP 138/84
--- NOTE | 2019-07-31 13:44 | ER Document Report ---
Doctor's Note Notes: 07/31/19 13:36 S: Rounded on patient this morning. She has been here since July 26. This is her fifth day in the emergency department. She is awaiting placement. Hope is that she will go to [facility] for placement. She came in initially for "altered mental status". She is had not been taking her antipsychotics for approximately 3 weeks. Today she states that she is doing well. She denies any SI, HI, hallucinations. She tells me that the Clozaril which has been doing well for her for the past several days as her hallucinations. This is after she tells me that she has not been hallucinating. She denies any other complaints today. They have her health team has seen the patient and we are working on placement for her. Of note patient refused to get dressed this morning for several hours. Finally the staff was able to get her to get back into paper scrubs. O: Constitution: Alert, in no acute distress. Cardiac: Regular rate and rhythm. No murmurs rubs or gallops. Respiratory: Clear lungs, no wheezes, rhonchi or rales Abdomen: Soft, nontender, nondistended. Normal bowel sounds. Psych: Flat affect. Slightly bizarre. Denies SI, HI, hallucinations. Noted IDD. Neuro: Cranial nerves II through XII are intact. There is no dysarthria. No pronator drift. A/P: Patient in the emergency department for acute decline in her schizophrenia after she was off of her medicines for 3 weeks. We are waiting placement for patient. We will continue to monitor closely. She has been doing well since she has been taking her Clozaril we will continue to monitor
--- NOTE | 2019-08-01 13:16 | PSYCHOLOGICAL NOTE ---
Psych Note - Psych Note Date seen by psych provider: 07/31/19 Time seen by psych provider: 07:30 - Observed and ontained collateral from medical staff at 0730. Observed and interacted with patient throught the day. Psych Note: Presenting Problem: IVC, been off prescribed Clozaril for 1-3 weeks due to ability to get access to medication in the community and reportedly guardian not coordinating with [facility] for earlier medication appointment at [facility], increased behaviors and aggression, Hx of IDD/PTSD/Bipolar. Patient's interactions and behavior seemed to be getting closer to baseline starting yesterday. Medications (Depakote Sprinkles decreased from 1500 to 500MG at supper time) were adjusted yesterday. Today medical staff noted patient was in her room naked. Overheard patient say she needed to wash up (so concerned about personal hygiene which is a good sign). Earlier in the day she was trying to get medical staff to do things for he that she is capable of. Later in the day observed patient using a walker to get around, smiling and laughing and intera cting in a positive manner with staff. This morning makes her third dose of Clozaril. Patient alert and oriented x5 with linear thinking (less peseverated on the past and more concerned about now), denied SI/HI (these were never presenting concerns), mood was more euthymic with congruent and brighter affect, she engaged and was able to carry on dialogue conversation which was within normal limits for rate/tone/prosody. Realo confirmed patient has been added to the [facility] system and the Clozaril was filled 07/28/19 and being mailed to [facility] house. Coordinated with Kiana at [facility] for discharge. Katia provided transportation. DSM Diagnosis: Out of medications/access to them in the community IDD by HX Schizoaffective Disorder, Bipolar Type by Hx PTSD by Hx Impression/Plan: Patient is cleared from acute psychiatric services. Recommendation to rescind IVC. Patient alert and oriented x5 with linear thinking (less peseverated on the past and more concerned about now), denied SI/HI (these were never presenting concerns), mood was more euthymic with congruent and brighter affect, she engaged and was able to carry on dialogue conversation which was within normal limits for rate/tone/prosody. This morning makes her third dose of Clozaril and per Realo has access to it in the community once again. so can continue taking it at home for further stabilization/management. Coordinated with Sweetie Barber and Katia provided transportation. Consulted with Dr. Trammell regarding the management and care of patient. ED Physician in agreement with recommendations.
== END 2019-07-31 18:00 | disposition home or self-care (01) ==
LOC: ER 13:56
DX: R41.82 Altered mental status, unspecified (principal); M79.672 Pain in left foot; M79.671 Pain in right foot; F20.9 Schizophrenia, unspecified; F43.10 Post-traumatic stress disorder, unspecified; Z88.2 Allergy status to sulfonamides; Z88.0 Allergy status to penicillin
CPT/HCPCS: 93005 ×2; 36415; 87086; 80307 ×4; 84703; 85025; 87088; 80053; 81001; 80164; 70360; 93010 ×2; J3230; J3490 ×14; J2060; J3486 ×3; 96372; 96374; 99285

== ENCOUNTER 2019-08-03 14:13 | Emergency (ER) | payer SELFPAY ==
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
[2019-08-03 16:46] LABS: HEMATOCRIT 40.6 % (36.0-47.0); HEMOGLOBIN 13.2 g/dL (12.0-15.5); MEAN CORPUSCULAR HEMOGLOBIN 28.9 pg (27.0-33.4); MEAN CORPUSCULAR HGB CONC 32.6 g/dL (32.0-36.0); MEAN CORPUSCULAR VOLUME 89 fl (80-97); PLATELET COUNT 258 10^3/uL (150-450); RED BLOOD COUNT 4.58 10^6/uL (3.72-5.28); RED CELL DISTRIBUTION WIDTH 13.7 % (11.5-14.0); WHITE BLOOD COUNT 7.5 10^3/uL (4.0-10.5)
[2019-08-03 16:55] LABS: APPEARANCE,URINE CLEAR; BILIRUBIN,URINE NEGATIVE (NEGATIVE); COLOR,URINE STRAW; GLUCOSE, URINE NEGATIVE (NEGATIVE); KETONES,URINE NEGATIVE (NEGATIVE); LEUKOCYTE ESTERASE,URINE NEGATIVE (NEGATIVE); NITRITE,URINE NEGATIVE (NEGATIVE); PROTEIN,URINE NEGATIVE (NEGATIVE); URINE SPECIFIC GRAVITY 1.005; UROBILINOGEN,URINE NEGATIVE mg/dL (<2.0)
[2019-08-03 16:59] LABS: ACETAMINOPHEN < 10 ug/mL (10-30); ALBUMIN 4.2 g/dL (3.5-5.0); ALCOHOL < 10 mg/dL (NONE DETECTED); ALKALINE PHOSPHATASE 68 U/L (38-126); ANION GAP 8 (5-19); ASPARTATE AMINO TRANSFERASE 26 U/L (14-36); BILIRUBIN,DIRECT 0.1 mg/dL (0.0-0.4); BILIRUBIN,TOTAL 0.3 mg/dL (0.2-1.3); BLOOD UREA NITROGEN 10 mg/dL (7-20); CALCIUM 9.5 mg/dL (8.4-10.2); CARBON DIOXIDE 28 mmol/L (22-30); CHLORIDE 104 mmol/L (98-107); GLUCOSE 84 mg/dL (75-110); POTASSIUM 4.2 mmol/L (3.6-5.0); SALICYLATE < 1.0 mg/dL (2.0-20.0); TOTAL PROTEIN 7.8 g/dL (6.3-8.2)
[2019-08-03 17:11] LABS: URINE AMPHETAMINES SCREEN NEGATIVE; URINE BARBITURATES SCREEN NEGATIVE; URINE BENZODIAZEPINES SCREEN NEGATIVE; URINE COCAINE SCREEN NEGATIVE; URINE MARIJUANA (THC) SCREEN NEGATIVE; URINE METHADONE SCREEN NEGATIVE; URINE PHENCYCLIDINE SCREEN NEGATIVE
[2019-08-03 17:16] LABS: ABSOLUTE LYMPHOCYTES# (MANUAL) 3.8 10^3/uL (0.5-4.7); ABSOLUTE MONOCYTES # (MANUAL) 0.5 10^3/uL (0.1-1.4); BASOPHILS % (MANUAL) 0 % (0-2); EOSINOPHILS % (MANUAL) 3 % (0-6); LYMPHOCYTES % (MANUAL) 51 % (13-45); MONOCYTES % (MANUAL) 6 % (3-13); SEGMENTED NEUTROPHILS % (MAN) 40 % (42-78); TOTAL CELLS COUNTED 100
[2019-08-03 17:18] LABS: PLATELET CLUMPS PRESENT; PLATELET COMMENT ADEQUATE; RBC MORPHOLOGY COMMENT NORMO-CYTIC/CHROMIC
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
[2019-08-03] MEDS ORDERED: ACETAMINOPHEN 325 MG TABLET PO ONE (20:07)
--- NOTE | 2019-08-04 12:08 | ER Document Report ---
Doctor's Note Notes: 08/04/19 10:07 Upon initial assessment patient sitting upright at bedside table. Patient has been eating and drinking appropriately. Patient has not exhibited any erratic behavior since being in the emergency department. Patient has not been a threat to herself or staff members. Mental health is working on discharging the patient back to [facility]. 12:07 Patient to be discharged back to [facility]. [facility] to shrimp picker the patient. Patient medically cleared and stable for discharge.
[2019-08-04] MEDS ORDERED: CLOZAPINE 100 MG TABLET PO ONE (14:08)
[2019-08-04 16:19] VITALS: BP 136/84
== END 2019-08-04 16:25 | disposition home or self-care (01) ==
LOC: ER 14:13
DX: F91.8 Other conduct disorders (principal); Z88.0 Allergy status to penicillin; Z88.2 Allergy status to sulfonamides
CPT/HCPCS: 99284; 36415; 80307 ×4; 85025; 80053; 81001; J3490

== ENCOUNTER → 2019-08-25 | Outpatient (CLI) | payer MEDICAID ==
[2019-08-25 10:54] LABS: HEMATOCRIT 39.6 % (36.0-47.0); MEAN CORPUSCULAR HEMOGLOBIN 28.9 pg (27.0-33.4); MEAN CORPUSCULAR HGB CONC 32.9 g/dL (32.0-36.0); MEAN CORPUSCULAR VOLUME 88 fl (80-97); PLATELET COUNT 151 10^3/uL (150-450); RED CELL DISTRIBUTION WIDTH 13.6 % (11.5-14.0); WHITE BLOOD COUNT 4.2 10^3/uL (4.0-10.5)
[2019-08-25 11:09] LABS: ALBUMIN 4.3 g/dL (3.5-5.0); ALKALINE PHOSPHATASE 67 U/L (38-126); ANION GAP 7 (5-19); ASPARTATE AMINO TRANSFERASE 22 U/L (14-36); BILIRUBIN,DIRECT 0.1 mg/dL (0.0-0.4); BILIRUBIN,TOTAL 0.3 mg/dL (0.2-1.3); BLOOD UREA NITROGEN 10 mg/dL (7-20); CALCIUM 9.3 mg/dL (8.4-10.2); CARBON DIOXIDE 29 mmol/L (22-30); CHLORIDE 103 mmol/L (98-107); GLUCOSE 86 mg/dL (75-110); POTASSIUM 4.2 mmol/L (3.6-5.0); TOTAL PROTEIN 7.4 g/dL (6.3-8.2)
[2019-08-25 11:25] LABS: ABSOLUTE LYMPHOCYTES# (MANUAL) 1.9 10^3/uL (0.5-4.7); ABSOLUTE MONOCYTES # (MANUAL) 0.3 10^3/uL (0.1-1.4); BASOPHILS % (MANUAL) 1 % (0-2); EOSINOPHILS % (MANUAL) 13 % (0-6); LYMPHOCYTES % (MANUAL) 43 % (13-45); MONOCYTES % (MANUAL) 8 % (3-13); SEGMENTED NEUTROPHILS % (MAN) 32 % (42-78); TOTAL CELLS COUNTED 100
[2019-08-25 11:26] LABS: SMUDGE CELLS PRESENT
[2019-08-25 11:27] LABS: PLATELET COMMENT ADEQUATE
== END ==
LOC: OD 09:14
PROVIDERS: ATTEND Physician Assistant
DX: Z79.899 Other long term (current) drug therapy (principal)
CPT/HCPCS: 36415; 80053; 80164; 85025

== ENCOUNTER → 2019-08-29 | Outpatient (CLI) | payer MEDICAID ==
[2019-08-29 11:35] LABS: ABSOLUTE EOSINOPHILS # (AUTO) 0.1 10^3/uL (0.0-0.6); ABSOLUTE LYMPHOCYTES (AUTO) 2.1 10^3/uL (0.5-4.7); ABSOLUTE MONOCYTES (AUTO) 0.3 10^3/uL (0.1-1.4); ABSOLUTE NEUT (AUTO) 2.2 10^3/uL (1.7-8.2); BASOPHILS % (AUTO) 0.4 % (0-2); EOSINOPHILS % (AUTO) 1.5 % (0-6); HEMATOCRIT 38.3 % (36.0-47.0); HEMOGLOBIN 12.7 g/dL (12.0-15.5); LYMPHOCYTES % (AUTO) 44.5 % (13-45); MEAN CORPUSCULAR HGB CONC 33.2 g/dL (32.0-36.0); MEAN CORPUSCULAR VOLUME 87 fl (80-97); MONOCYTES % (AUTO) 6.5 % (3-13); PLATELET COUNT 178 10^3/uL (150-450); RED BLOOD COUNT 4.38 10^6/uL (3.72-5.28); RED CELL DISTRIBUTION WIDTH 13.1 % (11.5-14.0); SEGMENTED NEUTROPHILS % (AUTO) 47.1 % (42-78); TOTAL CELLS COUNTED % (AUTO) 100 %; WHITE BLOOD COUNT 4.7 10^3/uL (4.0-10.5)
== END ==
LOC: OD 10:46
PROVIDERS: ATTEND Physician Assistant
DX: F25.0 Schizoaffective disorder, bipolar type (principal); Z79.899 Other long term (current) drug therapy
CPT/HCPCS: 36415; 85025

== ENCOUNTER → 2019-09-22 | Outpatient (CLI) | payer MEDICAID ==
[2019-09-22 10:48] LABS: ABSOLUTE EOSINOPHILS # (AUTO) 0.1 10^3/uL (0.0-0.6); ABSOLUTE LYMPHOCYTES (AUTO) 1.7 10^3/uL (0.5-4.7); ABSOLUTE MONOCYTES (AUTO) 0.3 10^3/uL (0.1-1.4); ABSOLUTE NEUT (AUTO) 2.1 10^3/uL (1.7-8.2); BASOPHILS % (AUTO) 0.4 % (0-2); EOSINOPHILS % (AUTO) 1.7 % (0-6); HEMATOCRIT 38.2 % (36.0-47.0); HEMOGLOBIN 12.6 g/dL (12.0-15.5); LYMPHOCYTES % (AUTO) 40.8 % (13-45); MEAN CORPUSCULAR HEMOGLOBIN 28.8 pg (27.0-33.4); MEAN CORPUSCULAR VOLUME 87 fl (80-97); MONOCYTES % (AUTO) 6.7 % (3-13); PLATELET COUNT 202 10^3/uL (150-450); RED BLOOD COUNT 4.38 10^6/uL (3.72-5.28); RED CELL DISTRIBUTION WIDTH 13.7 % (11.5-14.0); SEGMENTED NEUTROPHILS % (AUTO) 50.4 % (42-78); TOTAL CELLS COUNTED % (AUTO) 100 %; WHITE BLOOD COUNT 4.2 10^3/uL (4.0-10.5)
== END ==
LOC: OD 10:01
PROVIDERS: ATTEND Nurse Practitioner Psychiatric/Mental Health
DX: F25.0 Schizoaffective disorder, bipolar type (principal); Z79.899 Other long term (current) drug therapy
CPT/HCPCS: 36415; 85025

== ENCOUNTER → 2019-10-20 | Outpatient (CLI) | payer MEDICAID ==
[2019-10-20 10:46] LABS: ABSOLUTE EOSINOPHILS # (AUTO) 0.1 10^3/uL (0.0-0.6); ABSOLUTE MONOCYTES (AUTO) 0.4 10^3/uL (0.1-1.4); ABSOLUTE NEUT (AUTO) 2.7 10^3/uL (1.7-8.2); BASOPHILS % (AUTO) 0.5 % (0-2); EOSINOPHILS % (AUTO) 1.1 % (0-6); HEMATOCRIT 38.3 % (36.0-47.0); HEMOGLOBIN 12.8 g/dL (12.0-15.5); LYMPHOCYTES % (AUTO) 38.8 % (13-45); MEAN CORPUSCULAR HEMOGLOBIN 28.9 pg (27.0-33.4); MEAN CORPUSCULAR HGB CONC 33.4 g/dL (32.0-36.0); MEAN CORPUSCULAR VOLUME 87 fl (80-97); MONOCYTES % (AUTO) 6.9 % (3-13); PLATELET COUNT 186 10^3/uL (150-450); RED BLOOD COUNT 4.43 10^6/uL (3.72-5.28); RED CELL DISTRIBUTION WIDTH 13.2 % (11.5-14.0); SEGMENTED NEUTROPHILS % (AUTO) 52.7 % (42-78); TOTAL CELLS COUNTED % (AUTO) 100 %; WHITE BLOOD COUNT 5.1 10^3/uL (4.0-10.5)
== END ==
LOC: OD 09:35
PROVIDERS: ATTEND Nurse Practitioner Psychiatric/Mental Health
DX: F25.0 Schizoaffective disorder, bipolar type (principal)
CPT/HCPCS: 36415; 85025

== ENCOUNTER → 2019-11-14 | Outpatient (CLI) | payer MEDICAID ==
[2019-11-14 11:53] LABS: HEMATOCRIT 39.3 % (36.0-47.0); HEMOGLOBIN 12.9 g/dL (12.0-15.5); MEAN CORPUSCULAR HEMOGLOBIN 28.1 pg (27.0-33.4); MEAN CORPUSCULAR HGB CONC 32.9 g/dL (32.0-36.0); MEAN CORPUSCULAR VOLUME 85 fl (80-97); PLATELET COUNT 211 10^3/uL (150-450); RED CELL DISTRIBUTION WIDTH 12.9 % (11.5-14.0); WHITE BLOOD COUNT 5.2 10^3/uL (4.0-10.5)
[2019-11-14 12:27] LABS: ABSOLUTE LYMPHOCYTES# (MANUAL) 2.3 10^3/uL (0.5-4.7); ABSOLUTE MONOCYTES # (MANUAL) 0.2 10^3/uL (0.1-1.4); BAND NEUTROPHILS % (MANUAL) 1 % (3-5); BASOPHILS % (MANUAL) 1 % (0-2); EOSINOPHILS % (MANUAL) 1 % (0-6); LYMPHOCYTES % (MANUAL) 43 % (13-45); MONOCYTES % (MANUAL) 4 % (3-13); SEGMENTED NEUTROPHILS % (MAN) 49 % (42-78); TOTAL CELLS COUNTED 100
[2019-11-14 12:28] LABS: RBC MORPHOLOGY COMMENT NORMO-CYTIC/CHROMIC
[2019-11-14 12:29] LABS: PLATELET COMMENT ADEQUATE
== END ==
LOC: OD 11:00
PROVIDERS: ATTEND Nurse Practitioner Psychiatric/Mental Health
DX: F25.0 Schizoaffective disorder, bipolar type (principal); Z79.899 Other long term (current) drug therapy
CPT/HCPCS: 36415; 85025

== ENCOUNTER → 2019-12-15 | Outpatient (CLI) | payer MEDICAID ==
[2019-12-15 10:30] LABS: ABSOLUTE EOSINOPHILS # (AUTO) 0.1 10^3/uL (0.0-0.6); ABSOLUTE LYMPHOCYTES (AUTO) 2.4 10^3/uL (0.5-4.7); ABSOLUTE MONOCYTES (AUTO) 0.4 10^3/uL (0.1-1.4); ABSOLUTE NEUT (AUTO) 4.3 10^3/uL (1.7-8.2); BASOPHILS % (AUTO) 0.6 % (0-2); EOSINOPHILS % (AUTO) 1.8 % (0-6); HEMATOCRIT 38.9 % (36.0-47.0); HEMOGLOBIN 12.9 g/dL (12.0-15.5); LYMPHOCYTES % (AUTO) 33.3 % (13-45); MEAN CORPUSCULAR HEMOGLOBIN 28.5 pg (27.0-33.4); MEAN CORPUSCULAR HGB CONC 33.1 g/dL (32.0-36.0); MEAN CORPUSCULAR VOLUME 86 fl (80-97); PLATELET COUNT 194 10^3/uL (150-450); RED BLOOD COUNT 4.51 10^6/uL (3.72-5.28); RED CELL DISTRIBUTION WIDTH 12.9 % (11.5-14.0); SEGMENTED NEUTROPHILS % (AUTO) 58.3 % (42-78); TOTAL CELLS COUNTED % (AUTO) 100 %; WHITE BLOOD COUNT 7.3 10^3/uL (4.0-10.5)
== END ==
LOC: OD 09:50
PROVIDERS: ATTEND Nurse Practitioner Psychiatric/Mental Health
DX: F25.0 Schizoaffective disorder, bipolar type (principal); Z79.899 Other long term (current) drug therapy
CPT/HCPCS: 36415; 85025

== ENCOUNTER → 2020-01-16 | Outpatient (CLI) | payer MEDICAID ==
[2020-01-16 12:34] LABS: HEMATOCRIT 38.2 % (36.0-47.0); HEMOGLOBIN 12.9 g/dL (12.0-15.5); MEAN CORPUSCULAR HEMOGLOBIN 29.1 pg (27.0-33.4); MEAN CORPUSCULAR HGB CONC 33.7 g/dL (32.0-36.0); MEAN CORPUSCULAR VOLUME 86 fl (80-97); PLATELET COUNT 202 10^3/uL (150-450); RED BLOOD COUNT 4.42 10^6/uL (3.72-5.28); RED CELL DISTRIBUTION WIDTH 12.7 % (11.5-14.0); WHITE BLOOD COUNT 5.1 10^3/uL (4.0-10.5)
[2020-01-16 12:55] LABS: ABSOLUTE LYMPHOCYTES# (MANUAL) 2.3 10^3/uL (0.5-4.7); ABSOLUTE MONOCYTES # (MANUAL) 0.2 10^3/uL (0.1-1.4); BASOPHILS % (MANUAL) 0 % (0-2); EOSINOPHILS % (MANUAL) 1 % (0-6); LYMPHOCYTES % (MANUAL) 43 % (13-45); MONOCYTES % (MANUAL) 4 % (3-13); SEGMENTED NEUTROPHILS % (MAN) 50 % (42-78); TOTAL CELLS COUNTED 100
[2020-01-16 12:57] LABS: PLATELET COMMENT ADEQUATE; POLYCHROMASIA SLIGHT; STOMATOCYTES SLIGHT
== END ==
LOC: OD 11:45
PROVIDERS: ATTEND Nurse Practitioner Psychiatric/Mental Health
DX: F25.0 Schizoaffective disorder, bipolar type (principal)
CPT/HCPCS: 36415; 85025

== ENCOUNTER → 2020-02-08 | Outpatient (CLI) | payer MEDICAID ==
[2020-02-08 09:32] LABS: ABSOLUTE EOSINOPHILS # (AUTO) 0.1 10^3/uL (0.0-0.6); ABSOLUTE LYMPHOCYTES (AUTO) 2.2 10^3/uL (0.5-4.7); ABSOLUTE MONOCYTES (AUTO) 0.7 10^3/uL (0.1-1.4); ABSOLUTE NEUT (AUTO) 6.8 10^3/uL (1.7-8.2); BASOPHILS % (AUTO) 0.4 % (0-2); EOSINOPHILS % (AUTO) 1.1 % (0-6); LYMPHOCYTES % (AUTO) 22.3 % (13-45); MEAN CORPUSCULAR HEMOGLOBIN 29.3 pg (27.0-33.4); MEAN CORPUSCULAR HGB CONC 34.3 g/dL (32.0-36.0); MEAN CORPUSCULAR VOLUME 86 fl (80-97); MONOCYTES % (AUTO) 6.7 % (3-13); PLATELET COUNT 203 10^3/uL (150-450); RED BLOOD COUNT 4.44 10^6/uL (3.72-5.28); RED CELL DISTRIBUTION WIDTH 12.8 % (11.5-14.0); SEGMENTED NEUTROPHILS % (AUTO) 69.5 % (42-78); TOTAL CELLS COUNTED % (AUTO) 100 %; WHITE BLOOD COUNT 9.8 10^3/uL (4.0-10.5)
== END ==
LOC: OD 09:00
PROVIDERS: ATTEND Nurse Practitioner Psychiatric/Mental Health
DX: F25.0 Schizoaffective disorder, bipolar type (principal); Z79.899 Other long term (current) drug therapy
CPT/HCPCS: 36415; 85025

== ENCOUNTER → 2020-03-07 | Outpatient (CLI) | payer MEDICAID ==
[2020-03-07 08:45] LABS: HEMATOCRIT 38.8 % (36.0-47.0); HEMOGLOBIN 12.9 g/dL (12.0-15.5); MEAN CORPUSCULAR HEMOGLOBIN 28.6 pg (27.0-33.4); MEAN CORPUSCULAR HGB CONC 33.2 g/dL (32.0-36.0); MEAN CORPUSCULAR VOLUME 86 fl (80-97); PLATELET COUNT 212 10^3/uL (150-450); RED CELL DISTRIBUTION WIDTH 12.6 % (11.5-14.0); WHITE BLOOD COUNT 5.3 10^3/uL (4.0-10.5)
[2020-03-07 09:51] LABS: ABSOLUTE LYMPHOCYTES# (MANUAL) 1.5 10^3/uL (0.5-4.7); ABSOLUTE MONOCYTES # (MANUAL) 0.3 10^3/uL (0.1-1.4); BASOPHILS % (MANUAL) 0 % (0-2); EOSINOPHILS % (MANUAL) 0 % (0-6); LYMPHOCYTES % (MANUAL) 28 % (13-45); MONOCYTES % (MANUAL) 6 % (3-13); SEGMENTED NEUTROPHILS % (MAN) 66 % (42-78); TOTAL CELLS COUNTED 100
[2020-03-07 09:52] LABS: PLATELET COMMENT ADEQUATE; RBC MORPHOLOGY COMMENT NORMO-CYTIC/CHROMIC
== END ==
LOC: OD 07:38
PROVIDERS: ATTEND Nurse Practitioner Psychiatric/Mental Health
DX: F25.0 Schizoaffective disorder, bipolar type (principal); Z79.899 Other long term (current) drug therapy
CPT/HCPCS: 36415; 85025

== ENCOUNTER → 2020-04-04 | Outpatient (CLI) | payer MEDICAID ==
[2020-04-04 09:27] LABS: HEMATOCRIT 38.5 % (36.0-47.0); HEMOGLOBIN 12.8 g/dL (12.0-15.5); MEAN CORPUSCULAR HEMOGLOBIN 28.8 pg (27.0-33.4); MEAN CORPUSCULAR HGB CONC 33.1 g/dL (32.0-36.0); MEAN CORPUSCULAR VOLUME 87 fl (80-97); PLATELET COUNT 198 10^3/uL (150-450); RED BLOOD COUNT 4.44 10^6/uL (3.72-5.28); RED CELL DISTRIBUTION WIDTH 12.9 % (11.5-14.0); WHITE BLOOD COUNT 4.4 10^3/uL (4.0-10.5)
[2020-04-04 10:02] LABS: ABSOLUTE LYMPHOCYTES# (MANUAL) 2.2 10^3/uL (0.5-4.7); ABSOLUTE MONOCYTES # (MANUAL) 0.3 10^3/uL (0.1-1.4); BASOPHILS % (MANUAL) 0 % (0-2); EOSINOPHILS % (MANUAL) 3 % (0-6); LYMPHOCYTES % (MANUAL) 51 % (13-45); MONOCYTES % (MANUAL) 7 % (3-13); SEGMENTED NEUTROPHILS % (MAN) 39 % (42-78); TOTAL CELLS COUNTED 100
[2020-04-04 10:04] LABS: PLATELET COMMENT ADEQUATE; RBC MORPHOLOGY COMMENT NORMO-CYTIC/CHROMIC
== END ==
LOC: OD 08:06
PROVIDERS: ATTEND Nurse Practitioner Psychiatric/Mental Health
DX: F25.0 Schizoaffective disorder, bipolar type (principal); Z79.899 Other long term (current) drug therapy
CPT/HCPCS: 36415; 85025

== ENCOUNTER → 2020-05-09 | Outpatient (CLI) | payer MEDICAID ==
[2020-05-09 13:34] LABS: HEMATOCRIT 41.3 % (36.0-47.0); HEMOGLOBIN 13.6 g/dL (12.0-15.5); MEAN CORPUSCULAR HEMOGLOBIN 28.5 pg (27.0-33.4); MEAN CORPUSCULAR VOLUME 86 fl (80-97); PLATELET COUNT 208 10^3/uL (150-450); RED BLOOD COUNT 4.79 10^6/uL (3.72-5.28); RED CELL DISTRIBUTION WIDTH 12.7 % (11.5-14.0); WHITE BLOOD COUNT 4.5 10^3/uL (4.0-10.5)
[2020-05-09 13:54] LABS: ABSOLUTE LYMPHOCYTES# (MANUAL) 1.7 10^3/uL (0.5-4.7); ABSOLUTE MONOCYTES # (MANUAL) 0.1 10^3/uL (0.1-1.4); BASOPHILS % (MANUAL) 0 % (0-2); EOSINOPHILS % (MANUAL) 1 % (0-6); LYMPHOCYTES % (MANUAL) 38 % (13-45); MONOCYTES % (MANUAL) 3 % (3-13); SEGMENTED NEUTROPHILS % (MAN) 58 % (42-78); TOTAL CELLS COUNTED 100
[2020-05-09 13:55] LABS: PLATELET COMMENT ADEQUATE; RBC MORPHOLOGY COMMENT NORMO-CYTIC/CHROMIC
== END ==
LOC: OD 12:23
PROVIDERS: ATTEND Physician Assistant
DX: F25.0 Schizoaffective disorder, bipolar type (principal); Z79.899 Other long term (current) drug therapy
CPT/HCPCS: 36415; 85025

== ENCOUNTER → 2020-06-04 | Outpatient (CLI) | payer MEDICAID ==
[2020-06-04 10:54] LABS: ABSOLUTE EOSINOPHILS # (AUTO) 0.1 10^3/uL (0.0-0.6); ABSOLUTE LYMPHOCYTES (AUTO) 2.5 10^3/uL (0.5-4.7); ABSOLUTE MONOCYTES (AUTO) 0.5 10^3/uL (0.1-1.4); ABSOLUTE NEUT (AUTO) 4.1 10^3/uL (1.7-8.2); BASOPHILS % (AUTO) 0.3 % (0-2); EOSINOPHILS % (AUTO) 1.6 % (0-6); HEMATOCRIT 40.3 % (36.0-47.0); HEMOGLOBIN 13.2 g/dL (12.0-15.5); LYMPHOCYTES % (AUTO) 34.2 % (13-45); MEAN CORPUSCULAR HEMOGLOBIN 28.4 pg (27.0-33.4); MEAN CORPUSCULAR HGB CONC 32.7 g/dL (32.0-36.0); MEAN CORPUSCULAR VOLUME 87 fl (80-97); MONOCYTES % (AUTO) 7.4 % (3-13); PLATELET COUNT 238 10^3/uL (150-450); RED BLOOD COUNT 4.65 10^6/uL (3.72-5.28); RED CELL DISTRIBUTION WIDTH 12.7 % (11.5-14.0); SEGMENTED NEUTROPHILS % (AUTO) 56.5 % (42-78); TOTAL CELLS COUNTED % (AUTO) 100 %; WHITE BLOOD COUNT 7.3 10^3/uL (4.0-10.5)
== END ==
LOC: OD 09:55
PROVIDERS: ATTEND Physician Assistant
DX: F25.0 Schizoaffective disorder, bipolar type (principal); Z79.899 Other long term (current) drug therapy
CPT/HCPCS: 36415; 85025

== ENCOUNTER → 2020-07-03 | Outpatient (CLI) | payer MEDICAID ==
[2020-07-03 12:07] LABS: ABSOLUTE EOSINOPHILS # (AUTO) 0.1 10^3/uL (0.0-0.6); ABSOLUTE LYMPHOCYTES (AUTO) 2.1 10^3/uL (0.5-4.7); ABSOLUTE MONOCYTES (AUTO) 0.3 10^3/uL (0.1-1.4); ABSOLUTE NEUT (AUTO) 2.1 10^3/uL (1.7-8.2); BASOPHILS % (AUTO) 0.4 % (0-2); EOSINOPHILS % (AUTO) 2.7 % (0-6); HEMATOCRIT 38.3 % (36.0-47.0); HEMOGLOBIN 12.6 g/dL (12.0-15.5); LYMPHOCYTES % (AUTO) 45.4 % (13-45); MEAN CORPUSCULAR HEMOGLOBIN 28.3 pg (27.0-33.4); MEAN CORPUSCULAR VOLUME 86 fl (80-97); MONOCYTES % (AUTO) 7.3 % (3-13); PLATELET COUNT 212 10^3/uL (150-450); RED BLOOD COUNT 4.46 10^6/uL (3.72-5.28); RED CELL DISTRIBUTION WIDTH 12.7 % (11.5-14.0); SEGMENTED NEUTROPHILS % (AUTO) 44.2 % (42-78); TOTAL CELLS COUNTED % (AUTO) 100 %; WHITE BLOOD COUNT 4.7 10^3/uL (4.0-10.5)
== END ==
LOC: OD 11:20
PROVIDERS: ATTEND Physician Assistant
DX: F25.0 Schizoaffective disorder, bipolar type (principal); Z79.899 Other long term (current) drug therapy
CPT/HCPCS: 36415; 85025

== ENCOUNTER → 2020-08-01 | Outpatient (CLI) | payer MEDICAID ==
[2020-08-01 10:29] LABS: ABSOLUTE EOSINOPHILS # (AUTO) 0.1 10^3/uL (0.0-0.6); ABSOLUTE LYMPHOCYTES (AUTO) 1.8 10^3/uL (0.5-4.7); ABSOLUTE MONOCYTES (AUTO) 0.4 10^3/uL (0.1-1.4); BASOPHILS % (AUTO) 0.5 % (0-2); EOSINOPHILS % (AUTO) 1.7 % (0-6); HEMATOCRIT 38.7 % (36.0-47.0); HEMOGLOBIN 12.9 g/dL (12.0-15.5); LYMPHOCYTES % (AUTO) 28.7 % (13-45); MEAN CORPUSCULAR HEMOGLOBIN 28.5 pg (27.0-33.4); MEAN CORPUSCULAR HGB CONC 33.3 g/dL (32.0-36.0); MEAN CORPUSCULAR VOLUME 86 fl (80-97); MONOCYTES % (AUTO) 5.9 % (3-13); PLATELET COUNT 251 10^3/uL (150-450); RED BLOOD COUNT 4.53 10^6/uL (3.72-5.28); RED CELL DISTRIBUTION WIDTH 12.5 % (11.5-14.0); SEGMENTED NEUTROPHILS % (AUTO) 63.2 % (42-78); TOTAL CELLS COUNTED % (AUTO) 100 %; WHITE BLOOD COUNT 6.3 10^3/uL (4.0-10.5)
== END ==
LOC: OD 09:49
PROVIDERS: ATTEND Physician Assistant
DX: F25.0 Schizoaffective disorder, bipolar type (principal); Z79.899 Other long term (current) drug therapy
CPT/HCPCS: 36415; 85025

== ENCOUNTER → 2020-08-29 | Outpatient (CLI) | payer MEDICAID ==
[2020-08-29 13:17] LABS: ABSOLUTE EOSINOPHILS # (AUTO) 0.1 10^3/uL (0.0-0.6); ABSOLUTE LYMPHOCYTES (AUTO) 1.8 10^3/uL (0.5-4.7); ABSOLUTE MONOCYTES (AUTO) 0.3 10^3/uL (0.1-1.4); ABSOLUTE NEUT (AUTO) 4.2 10^3/uL (1.7-8.2); BASOPHILS % (AUTO) 0.4 % (0-2); EOSINOPHILS % (AUTO) 1.2 % (0-6); HEMATOCRIT 38.2 % (36.0-47.0); HEMOGLOBIN 12.5 g/dL (12.0-15.5); MEAN CORPUSCULAR HEMOGLOBIN 28.2 pg (27.0-33.4); MEAN CORPUSCULAR HGB CONC 32.7 g/dL (32.0-36.0); MEAN CORPUSCULAR VOLUME 86 fl (80-97); MONOCYTES % (AUTO) 4.3 % (3-13); PLATELET COUNT 223 10^3/uL (150-450); RED BLOOD COUNT 4.43 10^6/uL (3.72-5.28); RED CELL DISTRIBUTION WIDTH 12.6 % (11.5-14.0); SEGMENTED NEUTROPHILS % (AUTO) 66.1 % (42-78); TOTAL CELLS COUNTED % (AUTO) 100 %; WHITE BLOOD COUNT 6.4 10^3/uL (4.0-10.5)
[2020-08-30 14:33] LABS: CLOZAPINE + NORCLOZAPINE TOTAL 750 ng/mL (.); CLOZAPINE SERUM 629 ng/mL (350-650); NORCLOZAPINE SERUM 121 ng/mL (Not Estab.)
--- OUTSIDE RECORDS SUMMARY | 2020-08-30 15:25 | XMS REPORT ---
:1985 [facility] [address] [place] [address] Care Team Providers Name Role Phone OIC Primary Care Physician Unavailable Cherelle Attending Clinician Unavailable Giselle Acosta) Attending Clinician Unavailable MD Kurtis Padilla Attending Clinician Unavailable ANGEL Carolina Attending Clinician Unavailable BRUCE PADILLA Attending Clinician Unavailable Nisreen Attending Clinician Unavailable Ralph Attending Clinician Unavailable Andrae Attending Clinician Unavailable MD Bob Attending Clinician Unavailable DO Rickey Chester Attending Clinician Unavailable Erlin Attending Clinician Unavailable MD Kurtis Padilla Admitting Clinician Unavailable Physician Admitting Clinician Unavailable Allergies, Adverse Reactions, Alerts Allergy Allergy Status Severity Reaction(s) Onset Inactive Treating C omments Name Type Date Date Clinician Rains And Propensity Active 2016- Derivatives to adverse 9-18 reactions 00:00: 00 Penicillins Propensity Inactive 2017-0 to adverse 9-18 reactions 00:00: 00 Penicillins Propensity Active 2017-0 to adverse 9-18 reactions 00:00: 00 tomato Miscellane Inactive U hives ous - Allergy 00:00: 00 citrus Miscellane Inactive U blisters in ous mouth 9- Allergy 00:00: 00 honey Miscellane Inactive U 2015- ous 9- Allergy 00:00: 00 mustard Miscellane Inactive U 2015- ous 9- Allergy 00:00: 00 penicillin Miscellane Inactive U lips swell 2015- ous - Allergy 00:00: 00 sulfa Miscellane Inactive U hives 2015- ous 9- Allergy 00:00: 00 tomato Miscellane Inactive hives 2015-0 ous 9-08 Allergy 00:00: 00 tomato Miscellane Inactive hives 2015-0 ous 8-03 Allergy 00:00: 00 tomato Miscellane Inactive hives 2016- ous 7-19 Allergy 00:00: 00 tomato Miscellane Inactive hives 2016-0 ous 6-24 Allergy 00:00: 00 sulfur Miscellane Active U hives 2016- drugs ous 6-06 Allergy 00:00: 00 penicillian Miscellane Active U lips swell 2016- ous 6-06 Allergy 00:00: 00 sulfur Miscellane Inactive hives 2016 drugs ous 6 Allergy 00:00: 00 Sulfa Propensity Inactive Othe r (Sulfonamid to adverse r eaction( e reactions s): HI VES Antibiotics ) Sulfa Propensity Active Other (Sulfonamid to adverse r eaction( e reactions s): HI VES Antibiotics ) Medications Ordered Filled Start Stop Current Ordering Indication Dosage Frequency Signature Comments Components Medication Medication Date Date Medication? Clinician (SIG) Name Name peg Yes Take by Take by 3350-sod 8-02 mouth. mouth. chlor-potas 13:40: s cit 17 47 gram/ scoop Kit DEXT Yes Apply to Apply to 70/POLYCARB 8-02 eye. eye. OPHIL/PEG/N 13:40: ACL 47 (ARTIFICIAL TEAR SOLUTION OPHT) MAG Yes 30mL Take 30 mL Take 30 HYDROX/ALUM 8-02 by mouth mL by INUM 13:40: Every six mouth HYD/SIMETH 47 (6) hours. Ever y six (MAALOX (6) ORAL) hours. MAGNESIUM Yes 30mL Take 30 mL Take 30 HYDROXIDE 8-02 by mouth mL by (MILK OF 13:40: daily. mouth MAGNESIA 47 daily. ORAL) white Yes 4{appli Apply 4 Apply 4 petrolatum- 8-02 cation} applicatio a pplicati mineral oil 13:40: n on (EUCERIN) 47 topically topica lly Crea daily. daily. GLY/DIMETH/ Yes 4[oz_av Apply 4 oz Apply 4 PETROLAT,WH 8-02 ] topically oz T/WATER 13:40: once topically (MOISTURIZI 47 daily. once NG CREAM daily. TOP) COCOA Yes 1{appli 1 1 BUTTER, 8-02 cation} applicatio appli jennifer BULK, MISC 13:40: n by on by 47 Miscellane Miscellan ous route. eous route. famotidine 2017-10 Yes 20mg Take 20 mg Pardeep e 20 (PEPCID) 20 0-19 by mouth mg by MG tablet 12:17: Two (2) mouth T wo 18 times a (2) times day. a day. OLANZapine 2017-10 Yes Inject Inject (ZYPREXA) 0-19 into the into th e injection 12:15: muscle muscle 11 once as once as needed for needed agitation. for agitation . senna-docus 2018- Yes 1{tbl} Take 1 Take 1 ate 0-19 tablet by tablet by (SENNOSIDES 12:09: mouth mouth -DOCUSATE 42 daily. daily. SODIUM) 8.6-50 mg COCOA 2017-10 No 1{appli 1 1 BUTTER, 0-19 cation} applicatio appli jennifer BULK, MIS 12:08: n by on by 00 Miscellane Miscellan ous route. eous route. norethindro 2017-10 2018- No Abnormal 5MG Take 1 Pardeep e 1 ne 0-19 11-08 uterine tablet (5 tablet ( 5 (AYGESTIN) 00:00: 23:59 bleeding mg total) m g total) 5 mg tablet 00 :00 by mouth by mo [facility] three (3) three (3) times a times a day (at day (at 6am, noon 6am, noon and 6pm). and 6pm). for 20 for 20 days days lamoTRIgine 2018- Yes 200mg Take 200 Take 200 (LAMICTAL) 4-13 mg by mg by 100 MG 10:51: mouth mouth tablet 10 daily. daily. LORazepam 2018- Yes 1mg Take 1 mg Take 1 mg (ATIVAN) 1 4-13 by mouth by palma th MG tablet 10:51: Every four Ever y 10 (4) hours. four (4) hours. MAG 2018-0 No 30mL Take 30 mL Take 30 HYDROX/ALUM 4-13 by mouth mL by INUM 10:51: Every six mouth HYD/SIMETH 10 (6) hours. Ever y six (MAALOX (6) ORAL) hours. MAGNESIUM 2018-0 No 30mL Take 30 mL Take 30 HYDROXIDE 4-13 by mouth mL by (MILK OF 10:51: daily. mouth MAGNESIA 10 daily. ORAL) selenium 2017- Yes Apply Apply sulfide 4-13 topically topicall y (SELSUN) 1 10:51: daily. daily. % Sham 10 haloperidol 0 Yes 5mg Take 5 mg Pardeep e 5 mg (HALDOL) 5 4-13 by mouth by palma th MG tablet 10:51: Every four Ever y 09 (4) hours. four (4) hours. GLY/DIMETH/ 2018-0 No 4[foz_u Apply 4 oz Apply 4 PETROLAT,WH 4-13 s] topically oz T/WATER 10:51: once topically (MOISTURIZI 09 daily. once NG CREAM daily. TOP) glycopyrrol 2017-0 Yes 2mg Take 2 mg Pardeep e 2 mg ate 4-13 by mouth by mouth (ROBINUL) 2 10:51: Three (3) Thr ee (3) MG tablet 09 times a times a day. day. neomycin-ba Yes Apply Apply citracin-po 4-13 topically topi vlad lymyxin 10:23: Two (2) Two (2) (NEOSPORIN) 46 times a times a ointment day. day. polyethylen 2017-0 Yes 17g Take 17 g Pardeep e 17 g e glycol 4-13 by mouth by mouth (MIRALAX) 10:23: daily. daily. 17 gram 46 packet senna 0 Yes 1{tbl} Take 1 Take 1 (SENOKOT) 4-13 tablet by tablet by 8.6 mg 10:23: mouth mouth tablet 46 daily. daily. bisacodyl 0 Yes 5mg Take 5 mg Take 5 mg (DULCOLAX) 4-13 by mouth by palma th 5 mg EC 10:23: daily as daily as tablet 46 needed. needed. haloperidol 0 Yes Inject Inject decanoate 4-13 into the into th e (HALDOL 10:23: muscle muscle DECANOATE) 46 every every 100 mg/mL twenty-eig twent y-ei injection ht (28) ght (28) days. days. aluminum-ma 2018-0 Yes 30mL Take 30 mL Ta ke 30 gnesium 4-13 by mouth mL by hydroxide 10:23: every six mouth (MAALOX) 46 (6) hours every s ix 200-200 as needed (6) hour s mg/5 mL for as needed suspension indigestio for n. indigesti on. white 2018- No 4{appli Apply 4 Apply 4 petrolatum- 4-13 cation} applicatio a pplicati mineral oil 10:23: n on (EUCERIN) 46 topically topica lly Crea daily. daily. pyrithione Yes Apply Apply zinc (HEAD 4-13 topically topic ally AND 10:23: daily as daily as SHOULDERS) 46 needed for need ed 1 % shampoo itching. for itching. glycopyrrol Yes 1mg Take 1 mg Pardeep e 1 mg ate 4-13 by mouth by mouth (ROBINUL) 1 10:17: Three (3) Thr ee (3) mg tablet 56 times a times a day. day. haloperidol Yes 2mg Take 2 mg Pardeep e 2 mg (HALDOL) 2 4-13 by mouth by palma th MG tablet 10:17: Four (4) Four ( 4) 56 times a times a day. day. ARIPiprazol Yes 20mg Take 20 mg Ta ke 20 e (ABILIFY) 4-13 by mouth mg by 20 MG 10:17: daily. mouth tablet 55 daily. cloZAPine Yes 12.5mg Take 12.5 Take 12.5 (CLOZARIL) 4-13 mg by mg by 25 MG 10:17: mouth mouth tablet 55 daily. daily. medroxyPROG 2018- No Anovulatory 10MG Take 1 Take 1 ESTERone 4-13 10-19 cycle tablet (10 tablet (PROVERA) 00:00: 00:00 mg total) (10 m g 10 MG 00 :00 by mouth total) by tablet daily. mouth Take for daily. 10 days Take for every 1 - 10 days 2 months. every 1 - 2 months. LORazepam Yes 1mg Infuse 1 Infuse 1 (ATIVAN) 2 9-18 mg into a mg in to a mg/mL 09:44: venous venous injection 20 catheter cathete r Three (3) Three (3) times a times a day as day as needed for needed anxiety. for anxiety. zinc oxide Yes 1{appli Apply 1 Appl y 1 20 % 9-18 cation} applicatio applica ti ointment 09:44: n on 20 topically topically as needed as needed for dry for dry skin. skin. peg No Take by Take by 3350-sod 07-05 mouth. mouth. chlor-potas 09:44: s cit 17 19 gram/ scoop Kit acetaminoph Yes Take by Take by en 07-05 mouth. mouth. (TYLENOL) 09:44: 325 MG 19 tablet DEXT No Apply to Apply to 70/POLYCARB 07-05 eye. eye. OPHIL/PEG/N 09:44: ACL 19 (ARTIFICIAL TEAR SOLUTION OPHT) EPINEPHrine Yes .3mg Inject 0.3 In ject (EPIPEN) 9-18 mg into 0.3 mg 0.3 mg/0.3 09:44: the muscle int o the mL 19 as needed muscle as injection for needed anaphylaxi for s. anaphylax is. ibuprofen Yes 400mg Take 400 Take 4 00 (ADVIL,MOTR 9-18 mg by mg by IN) 800 MG 09:44: mouth mouth tablet 19 every every eight (8) eight (8) hours as hours as needed. needed. benztropine Yes .5mg Take 0.5 Take 0.5 (COGENTIN) 9-18 mg by mg by 0.5 MG 09:40: mouth Two mouth Tw o tablet 12 (2) times (2) times a day. a day. chlorproMAZ Yes 200mg Take 200 Take 200 INE 9-18 mg by mg by (THORAZINE) 09:40: mouth mouth 200 MG 12 Three (3) Three (3) tablet times a times a day. day. chlorproMAZ Yes 50mg Take 50 mg Ta ke 50 INE 9-18 by mouth mg by (THORAZINE) 09:40: Three (3) palma th 50 MG 12 times a Three (3) tablet day. times a day. divalproex 0 Yes 500mg Take 500 Take 500 (DEPAKOTE) 9-18 mg by mg by [address] 09:40: mouth Two mouth Two tablet 12 (2) times (2) times a day. a day. fluticasone Yes 1{spray 1 spray by 1 spray (FLONASE) 07-05 } Each Nare by Eac h 50 09:40: route Nare mcg/actuati 12 daily. route on nasal daily. spray lamoTRIgine Yes 50mg Take 50 mg Ta ke 50 (LAMICTAL) 07-05 by mouth mg by 25 MG 09:40: daily. mouth tablet 12 daily. clotrimazol Yes Frequency: Fr equency e 07-09 QD :QD (LOTRIMIN) 00:00: Dosage:0.0 Dos age:0. 1 % cream 00 0 Instructio Instructi ns: ons: Note:Dose: Note:Dose 1 % : 1 % docusate Yes 100mg Take 100 Take 10 0 sodium 07-09 mg by mg by (COLACE) 00:00: mouth mouth 100 MG 00 nightly as nightly capsule needed. as needed. multivitami Yes Take by Take by n (DAILY 07-09 mouth. mouth. MULTIPLE) 00:00: per tablet 00 LORazepam Yes 2mg Take 2 mg Take 2 mg (ATIVAN) 2 07-09 by mouth by palma th MG tablet 00:00: Every four Ever y 00 (4) hours. four (4) hours. oxybutynin Yes 10mg Take 10 mg Pardeep e 10 (DITROPAN) 07-09 by mouth. mg by 5 MG tablet 00:00: mouth. 00 Problems Condition Condition Condition Status Onset Resolution Last Treatin g Comments Name Details Category Date Date Treatment Clinician Date Anovulatory Anovulatory Condition Active 2018-01-28 cycle cycle 01-28 11:06:03 00:00: 00 True True Condition Active 2017-07-05 hermaphrodi hermaphrodi 07-05 10:19:41 te te 00:00: 00 Procedures Procedure Date / Time Performed Performing Clinician Devic e OFFICE/OUTPATIENT VISIT EST 2019-11-24 09:30:00 DSCHRG MED/CURRENT MED MERGE 2019-08-24 09:30:00 PREV VISIT EST AGE 18-39 2019-08-24 09:30:00 OFFICE/OUTPATIENT VISIT NEW 2019-07-05 10:15:00 POCT , URINE, INTERFACED 2018-08-05 12:29:00 Kenzie Shelton Offic Visit, Est Pt., Level 4 (2016-03-23 00:00:00 min) Offic Visit, Est Pt., Level 4 (25 2015-12-06 00:00:00 min) Offic Visit, New Pt., Level 5 (2015-05-29 00:00:00 min) Results Test Description Test Time Test Comments Text Results Atomic Results Result Comments COMPREHENSIVE METABOLIC PANEL 2020-04-09 11:49:00 Test Item Value Reference Range Comments BILIRUBIN, TOTAL (test code = 08893079) 0.3 mg/dL 0.2-1.2 CHLORIDE (test code = 59391962) 103 mmol/L 98-110 CARBON DIOXIDE (test code = 99544450) 28 mmol/L 20-32 eGFR NON-AFR. MOZAMBICAN (test code = 93711454) 103 mL/min/1.73m2 > OR = 60 ALT (test code = 62297039) 12 U/L 6-29 ALBUMIN/GLOBULIN RATIO (test code = 33481953) 1.6 (calc) 1. 0-2.5 GLUCOSE (test code = 49989487) 130 mg/dL 65-99 eGFR (test code = 41657794) 120 mL/min/1.73m2 > OR = 60 POTASSIUM (test code = 99144485) 4.1 mmol/L 3.5-5.3 UREA NITROGEN (BUN) (test code = 04765979) 13 mg/dL 7-25 CALCIUM (test code = 19034498) 9.8 mg/dL 8.6-10.2 GLOBULIN (test code = 99857851) 2.7 g/dL (calc) 1.9-3.7 PROTEIN, TOTAL (test code = 86119655) 6.9 g/dL 6.1-8.1 AST (test code = 71430780) 18 U/L 10-30 CREATININE (test code = 89771482) 0.75 mg/dL 0.50-1.10 SODIUM (test code = 99159068) 139 mmol/L 135-146 ALBUMIN (test code = 17367464) 4.2 g/dL 3.6-5.1 BUN/CREATININE RATIO (test code = 82700831) NOT APPLICABLE (calc ) 6-22 ALKALINE PHOSPHATASE (test code = 76745703) 57 U/L 31-1 25 CBC (INCLUDES DIFF/PLT)2020-04-09 11:49:00 Test Item Value Reference Range Comments MPV (test code = 16211913) 10.9 fL 7.5-12.5 MONOCYTES (test code = 88903667) 6.1 % PLATELET COUNT (test code = 89198278) 199 Thousand/uL 140-400 RED BLOOD CELL COUNT (test code = 4.47 Million/uL 3.80-5.10 64484126) WHITE BLOOD CELL COUNT (test code = 4.4 Thousand/uL 3.8-10.8 68840021) HEMOGLOBIN (test code = 30641707) 12.712.7 g/dL 11.7-15.5 ABSOLUTE LYMPHOCYTES (test code = 2253 cells/uL 850-3900 41701047) ABSOLUTE BASOPHILS (test code = 30208540) 31 cells/uL 0-200 MCV (test code = 72280999) 86.6 fL 80.0-100.0 MCH (test code = 64723468) 28.4 pg 27.0-33.0 HEMATOCRIT (test code = 89285639) 38.7 % 35.0-45.0 MCHC (test code = 50791356) 32.8 g/dL 32.0-36.0 ABSOLUTE NEUTROPHILS (test code = 11249740 cells/uL 4085-3297 50954280) RDW (test code = 73361982) 11.7 % 11.0-15.0 ABSOLUTE MONOCYTES (test code = 52629638) 268 cells/uL 200-95 0 ABSOLUTE EOSINOPHILS (test code = 128 cells/uL 15-500 53658670) BASOPHILS (test code = 74289686) 0.7 % EOSINOPHILS (test code = 81121534) 2.9 % LYMPHOCYTES (test code = 64112550) 51.2 % NEUTROPHILS (test code = 14820663) 39.1 % VITAMIN D,25-OH,TOTAL,[id number] 11:49:0030VITAMIN [id number] 11:49:00 [id number] (INCLUDES DIFF/PLT)2019-08-31 09:48:00 Test Item Value Reference Range Comments RDW (test code = 74560847) 12.3 % 11.0-15.0 LYMPHOCYTES (test code = 11630108) 44.4 % ABSOLUTE LYMPHOCYTES (test code = 51257547) 2042 cells/uL 850- 3900 MCV (test code = 10108642) 85.8 fL 80.0-100.0 NEUTROPHILS (test code = 54671425) 45.9 % WHITE BLOOD CELL COUNT (test code = 4.6 Thousand/uL 3.8-10.8 89658832) ABSOLUTE NEUTROPHILS (test code = 98922223) 2111 cells/uL 1500 -7800 MPV (test code = 82574361) 12.2 fL 7.5-12.5 EOSINOPHILS (test code = 29506321) 2.4 % HEMOGLOBIN (test code = 64763781) 12.5 g/dL 11.7-15.5 MCHC (test code = 45967932) 33.2 g/dL 32.0-36.0 ABSOLUTE BASOPHILS (test code = 99148369) 9 cells/uL 0-200 ABSOLUTE EOSINOPHILS (test code = 05941497) 110 cells/uL 15-5 00 ABSOLUTE MONOCYTES (test code = 25292607) 327 cells/uL 200-95 0 BASOPHILS (test code = 56539344) 0.2 % PLATELET COUNT (test code = 37470239) 201 Thousand/uL 140-400 RED BLOOD CELL COUNT (test code = 51471693) 4.38 Million/uL 3.80 -5.10 HEMATOCRIT (test code = 56875824) 37.6 % 35.0-45.0 MCH (test code = 44084456) 28.5 pg 27.0-33.0 MONOCYTES (test code = 07854664) 7.1 % COMPREHENSIVE METABOLIC [id number] 09:48:00 Test Item Value Reference Range Comments BILIRUBIN, TOTAL (test code = 0.2 mg/dL 0.2-1.2 82244201) CARBON DIOXIDE (test code = 19059517) 27 mmol/L 20-32 CALCIUM (test code = 67767081) 9.0 mg/dL 8.6-10.2 CREATININE (test code = 66978883) 0.76 mg/dL 0.50-1.10 PROTEIN, TOTAL (test code = 76886153) 7.2 g/dL 6.1-8.1 AST (test code = 44780333) 17 U/L 10-30 ALBUMIN (test code = 67518939) 4.2 g/dL 3.6-5.1 POTASSIUM (test code = 47406734) 4.1 mmol/L 3.5-5.3 CHLORIDE (test code = 99502858) 104 mmol/L 98-110 GLOBULIN (test code = 73105473) 3.0 g/dL (calc) 1.9-3.7 ALT (test code = 92129499) 14 U/L 6-29 GLUCOSE (test code = 92346959) 113 mg/dL 65-139 ALKALINE PHOSPHATASE (test code = 56 U/L 33-115 41287028) eGFR NON-AFR. MOZAMBICAN (test code = 102 mL/min/1.73m2 > OR = 60 80763251) UREA NITROGEN (BUN) (test code = 10 mg/dL 7-25 38339810) BUN/CREATININE RATIO (test code = NOT APPLICABLE (calc) 6-22 92809139) ALBUMIN/GLOBULIN RATIO (test code = 1.4 (calc) 1.0-2.5 23273446) SODIUM (test code = 84211834) 141 mmol/L 135-146 eGFR (test code = 119 mL/min/1.73m2 > OR = 60 00326249) LIPID PANEL, [id number] 09:48:00 Test Item Value Reference Range Comments TRIGLYCERIDES (test code = 67018278) 191 mg/dL <150 NON HDL CHOLESTEROL (test code = 26440666) 134 mg/dL (calc) <130 CHOLESTEROL, TOTAL (test code = 77961325) 201 mg/dL <200 LDL-CHOLESTEROL (test code = 03259060) 103 mg/dL (calc) HDL CHOLESTEROL (test code = 98230756) 67 mg/dL >50 CHOL/HDLC RATIO (test code = 64103009) 3.0 (calc) <5.0 POCT , URINE, [id number] 12:29:00 Test Item Value Reference Range Comments HCG Urine, POC (test code = HCG Urine, POC) Negative Nega tive Urinalysis with Culture [id number] 06:00:00 Test Item Value Reference Range Comments Specific [place], Urine (test code = Specific 1.013 1. 002-1.03 [place], Urine) Clarity/A (test code = Clarity/A) Clear Clear URINE PH (test code = URINE PH) 7 Nitrite, Urine (test code = Nitrite, Urine) Negative Nega tive Urine-Color (test code = Urine-Color) Yellow Yellow Leukocyte Esterase, UA (test code = Leukocyte Negative Ne gative /mcL Esterase, UA) Blood, Urine (test code = Blood, Urine) Negative Negative /mcL Urobilinogen, UA (test code = Urobilinogen, UA) Normal Normal mg/dL Bilirubin Urine (test code = Bilirubin Urine) Negative Ne gative mg/dL Protein, Ur (test code = Protein, Ur) Negative Negative m g/dL Glucose, Urine (test code = Glucose, Urine) Normal Norm al mg/dL Ketones, Urine (test code = Ketones, Urine) Negative Nega tive mg/dL CBC w/ [id number] 05:30:00 Test Item Value Reference Range Comments SYSTEM FLAG (test code = SYSTEM FLAG) Present WBC (test code = WBC) 9.2 x10(3)/mcL HGB (test code = HGB) 13.3 gm/dL 12.0- 15.5 gm/dL MCHC (test code = MCHC) 33.0 gm/dL 32.0- 36.5 gm/dL MCH (test code = MCH) 28.2 pg 26.0- 34.0 pg RDW-SD (test code = RDW-SD) 39.8 fL 35.0- 47.0 fL Valproic Acid [id number] 05:39:00 Test Item Value Reference Range Comments Valproic Acid Level (test code = Valproic 123.7 mcg/mL 50.0- 100.0 mcg/mL Acid Level) Urinalysis with Culture [id number] 05:10:00 Test Item Value Reference Range Comments Leukocyte Esterase, UA (test code = Leukocyte 25 /mcL Ne gative /mcL Esterase, UA) Blood, Urine (test code = Blood, Urine) 250 /mcL Negative /mcL Urobilinogen, UA (test code = Urobilinogen, UA) 1 mg/dL Normal mg/dL Specific [place], Urine (test code = Specific 1.018 1. 002-1.03 [place], Urine) Clarity/A (test code = Clarity/A) Clear Clear URINE PH (test code = URINE PH) 7 Nitrite, Urine (test code = Nitrite, Urine) Negative Nega tive Urine-Color (test code = Urine-Color) Yellow Yellow Bilirubin Urine (test code = Bilirubin Urine) Negative Ne gative mg/dL Protein, Ur (test code = Protein, Ur) Negative Negative m g/dL Glucose, Urine (test code = Glucose, Urine) Normal Norm al mg/dL Ketones, Urine (test code = Ketones, Urine) Negative Nega tive mg/dL CBC w/ [id number] 23:51:00 Test Item Value Reference Range Comments Differential (test code = Auto Only Differential) WBC (test code = WBC) 8.0 x10(3)/mcL 4.0- 10.0 x10(3)/mcL HGB (test code = HGB) 12.3 gm/dL 12.0- 15.5 gm/dL MCHC (test code = MCHC) 33.0 gm/dL 32.0- 36.5 gm/dL MCH (test code = MCH) 27.9 pg 26.0- 34.0 pg RDW-SD (test code = RDW-SD) 38.9 fL 35.0- 47.0 fL MPV (test code = MPV) 9.6 fL 9.0- 12.4 fL MCV (test code = MCV) 84.7 fL 80.0- 99.0 fL Red Blood Cells (test code = Red 4.39 x10(6)/mcL 4.0- 5.4 x10(6) /mcL Blood Cells) Platelets (test code = Platelets) 200 x10(3)/mcL 150.0- 450.0 x 10(3)/mcL RDW (test code = RDW) 12.9 % 11.5- 14.5 % HCT (test code = HCT) 37.2 % 35.0- 46.0 % nRBC (test code = nRBC) 0.2 /100 WBC 0.0- 0.0 /100 WBC Nucleated RBC (test code = Nucleated 0.01 x10(3)/mcL 0.0- 0.0 x1 0(3)/mcL RBC) Valproic Acid [id number] 11:26:00 Test Item Value Reference Range Comments Valproic Acid Level (test code = Valproic 119.1 mcg/mL 50.0- 100.0 mcg/mL Acid Level) Thyroid Function [id number] 05:56:00 Test Item Value Reference Range Comments TSH (test code = TSH) 4.89 mcIU/mL 0.27- 4.2 mcIU/mL [id number] 05:56:00 Test Item Value Reference Range Comments RPR Titer (test code = RPR Titer) Not Indicated RPR Screen (test code = RPR Screen) Non-Reactive Non-Reactive Urinalysis with Culture [id number] 00:33:00 Test Item Value Reference Range Comments Ketones, Urine (test code = Ketones, Urine) 15 mg/dL Nega tive mg/dL Specific [place], Urine (test code = Specific 1.011 1. 002-1.03 [place], Urine) Clarity/A (test code = Clarity/A) Clear Clear URINE PH (test code = URINE PH) 6.5 Nitrite, Urine (test code = Nitrite, Urine) Negative Nega tive Urine-Color (test code = Urine-Color) Yellow Yellow Leukocyte Esterase, UA (test code = Leukocyte Negative Ne gative /mcL Esterase, UA) Blood, Urine (test code = Blood, Urine) Negative Negative /mcL Urobilinogen, UA (test code = Urobilinogen, UA) Normal Normal mg/dL Bilirubin Urine (test code = Bilirubin Urine) Negative Ne gative mg/dL Protein, Ur (test code = Protein, Ur) Negative Negative m g/dL Glucose, Urine (test code = Glucose, Urine) Normal Norm al mg/dL CBC w/ [id number] 20:35:00 Test Item Value Reference Range Comments Differential (test code = Auto Only Differential) WBC (test code = WBC) 5.2 x10(3)/mcL 4.0- 10.0 x10(3)/mcL HGB (test code = HGB) 13.1 gm/dL 12.0- 15.5 gm/dL MCHC (test code = MCHC) 33.7 gm/dL 32.0- 36.5 gm/dL MCH (test code = MCH) 28.4 pg 26.0- 34.0 pg RDW-SD (test code = RDW-SD) 38.1 fL 35.0- 47.0 fL MPV (test code = MPV) 9.5 fL 9.0- 12.4 fL MCV (test code = MCV) 84.1 fL 80.0- 99.0 fL Nucleated RBC (test code = Nucleated 0.0 x10(3)/mcL 0.0- 0.0 x1 0(3)/mcL RBC) Red Blood Cells (test code = Red 4.62 x10(6)/mcL 4.0- 5.4 x10(6) /mcL Blood Cells) Platelets (test code = Platelets) 204 x10(3)/mcL 150.0- 450.0 x 10(3)/mcL RDW (test code = RDW) 12.6 % 11.5- 14.5 % HCT (test code = HCT) 38.8 % 35.0- 46.0 % nRBC (test code = nRBC) 0.1 /100 WBC 0.0- 0.0 /100 WBC NuSwab Vaginitis Plus (VG+)2016-06-16 00:00:00 Test Item Value Reference Range Comments Chlamydia trachomatis, GRACIE Negative Negative Derek loredoDeidra 06/23/2016 (test code = 475256) 12:03:20 AM >\X0A\VenturaThad jackeline 06/23/2016 4:28:28 PM > Called pt no ans wer could not leave message.\X0A\Bel l,Lina a 06/25/2016 3:42 :34 PM > Pt came in for a ppt today. Liana glabrata, GRACIE (test Negative Negative Laurence hairstonDeidra 06/23/2016 code = [id number]) 12:03:20 AM >\X0A\VenturaThad jackeline 06/23/2016 4:28:28 PM > Called pt no ans wer could not leave message.\X0A\Bel l,Lina a 06/25/2016 3:42 :34 PM > Pt came in for a ppt today. BVAB 2 (test code = 580454) Low - 0 Score Laurence hairstonDeidra 06/23/2016 12:03:20 AM >\X0A\Ventura,Thad schmidta 06/23/2016 4:28:28 PM > Called pt no ans wer could not leave message.\X0A\Bel l,Lina a 06/25/2016 3:42 :34 PM > Pt came in for a ppt today. Liana glabrata, GRAICE (test Negative Negative code = [id number]) Atopobium vaginae (test code Low - 0 Score Kyrie goldmanDeidra 06/23/2016 = [id number]) 12:03:20 AM >\X0A\Ventura,Thad jackeline 06/23/2016 4:28:28 PM > Called pt no ans wer could not leave message.\X0A\Bel lLina 06/25/2016 3:42 :34 PM > Pt came in for a ppt today. Liana albicans, GRACIE (test Negative Negative Laurence hairstonDeidra 06/23/2016 code = [id number]) 12:03:20 AM >\X0A\Thad Ventura 06/23/2016 4:28:28 PM > Called pt no ans wer could not leave message.\X0A\Bel lLina a 06/25/2016 3:42 :34 PM > Pt came in for a ppt today. Megasphaera 1 (test code = Low - 0 Score Derek loredoDeidra 06/23/2016 [id number]) 12:03:20 AM >\X0AThad Albright 06/23/2016 4:28:28 PM > Called pt no ans wer could not leave message.\X0A\Bel shahlaLina a 06/25/2016 3:42 :34 PM > Pt came in for a ppt today. Atopobium vaginae (test code Low - 0 Score = [id number]) Megasphaera 1 (test code = Low - 0 Score [id number]) Neisseria gonorrhoeae, GRACIE Negative Negative Derek loredoDeidra 06/23/2016 (test code = [id number]) 12:03:20 AM >\X0AThad Albright 06/23/2016 4:28:28 PM > Called pt no ans wer could not leave message.\X0A\Bel shahlaLina a 06/25/2016 3:42 :34 PM > Pt came in for a ppt today. BVAB 2 (test code = [id number]) Low - 0 Score Trich vag by GRACIE (test code = Negative Negative Martínez weiDeidra 06/23/2016 [id number]) 12:03:20 AM >\X0AThad Albright jackeline 06/23/2016 4:28:28 PM > Called pt no ans wer could not leave message.\X0A\Bel lLina a 06/25/2016 3:42 :34 PM > Pt came in for a ppt today. Chlamydia trachomatis, GRACIE Negative Negative (test code = 93181686) Trich vag by GRACIE (test code = Negative Negative [id number]) Neisseria gonorrhoeae, GRACIE Negative Negative (test code = 81045649) Liana albicans, GRACIE (test Negative Negative code = 16419156) Neisseria gonorrhoeae, GRACIE Negative Negative Derek loredoDeidra 06/23/2016 (test code = 46834091) 12:03:20 AM >\X0A\VenturaThad 06/23/2016 4:28:28 PM > Called pt no ans wer could not leave message.\X0A\Bel lLina 06/25/2016 3:42 :34 PM > Pt came in for a ppt today. Liana albicans, GRACIE (test Negative Negative Laurence hairstonDeidra 06/23/2016 code = [id number]) 12:03:20 AM >\X0A\VenturaThad 06/23/2016 4:28:28 PM > Called pt no ans wer could not leave message.\X0A\Bel l,Lina a 06/25/2016 3:42 :34 PM > Pt came in for a ppt today. Liana glabrata, GRACIE (test Negative Negative Laurence hairstonDeidra 06/23/2016 code = [id number]) 12:03:20 AM >\X0A\Thad Ventura jackeline 06/23/2016 4:28:28 PM > Called pt no ans wer could not leave message.\X0A\Bel l,Lina a 06/25/2016 3:42 :34 PM > Pt came in for a ppt today. Atopobium vaginae (test code Low - 0 Score Kyrie goldmanDeidra 06/23/2016 = [id number]) 12:03:20 AM >\X0A\VenturaThad jackeline 06/23/2016 4:28:28 PM > Called pt no ans wer could not leave message.\X0A\Bel l,Lina a 06/25/2016 3:42 :34 PM > Pt came in for a ppt today. BVAB 2 (test code = 59214770) Low - 0 Score Deidra Villanueva 06/23/2016 12:03:20 AM >\X0A\VenturaThad jackeline 06/23/2016 4:28:28 PM > Called pt no ans wer could not leave message.\X0A\Bel lLina 06/25/2016 3:42 :34 PM > Pt came in for a ppt today. Trich vag by GRACIE (test code = Negative Negative Deidra Villanueva 06/23/2016 [id number]) 12:03:20 AM >\X0A\Thad Ventura 06/23/2016 4:28:28 PM > Called pt no ans wer could not leave message.\X0A\Bel lLina 06/25/2016 3:42 :34 PM > Pt came in for a ppt today. Megasphaera 1 (test code = Low - 0 Score Deidra Novak 06/23/2016 [id number]) 12:03:20 AM >\X0A\Thad Ventura 06/23/2016 4:28:28 PM > Called pt no ans wer could not leave message.\X0A\Bel lLina 06/25/2016 3:42 :34 PM > Pt came in for a ppt today. Chlamydia trachomatis, GRACIE Negative Negative Deidra Novak 06/23/2016 (test code = 16004430) 12:03:20 AM >\X0A\Thad Ventura 06/23/2016 4:28:28 PM > Called pt no ans wer could not leave message.\X0A\Bel Lina gale 06/25/2016 3:42 :34 PM > Pt came in for a ppt today. PDF [id number] 00:00:00 Test Item Value Reference Range Comments PDF Report1 (test code = [facility] 06/[facility]/2016 04:38 :02 : This order was created by danyel Walker. Deidra aCrolina 06/23/2016 12:03:20 AM > Pap IG, Ct-Ng, rfx HPV [id number] 00:00:00 Test Item Value Reference Range Comments Adequacy: (test code = 398700) CRISTAL schwabDeidra montaño 06/23/2016 12:03:20 AM >\X0A\Thad Ventura 06/23/2016 4:28:50 PM > Called pt no ans wer could not leave message.\X0A\Bel l,Bel 98n for appt t gregory. 3:42:58 PM > Pt came i Chlamydia, Nuc. Acid Amp (test Negative Negative Deidra Staton 06/23/2016 code = 314300) 12:03:20 AM >\X0A\VenturaThad 06/23/2016 4:28:50 PM > Called pt no ans wer could not leave message.\X0A\Bel l,Bel 8n for appt t gregory. 3:42:58 PM > Pt came i Category: (test code = 418900) NIL Deidra Staton 06/23/2016 12:03:20 AM >\X0A\VenturaThad 06/23/2016 4:28:50 PM > Called pt no ans wer could not leave message.\X0A\Bel l,Bel 06/25n for appt t gregory. 3:42:58 PM > Pt came i Interpretation (test code = NIL Deidra Reed 06/23/2016 112707) 12:03:20 AM >\X0A\VenturaThad 06/23/2016 4:28:50 PM > Called pt no ans wer could not leave message.\X0A\Bel l,Bel 8n for appt t gregory. 3:42:58 PM > Pt came i Interpretation (test code = NIL 2265439) Adequacy: (test code = 18271922) ENDO Gonococcus, Nuc. Acid Amp (test Negative Negative Deidra Carolina 06/23/2016 code = 705487) 12:03:20 AM >\X0A\VenturaThad 06/23/2016 4:28:50 PM > Called pt no ans wer could not leave message.\X0A\Bel l,Bel 98n for appt t gregory. 3:42:58 PM > Pt came i Category: (test code = 70883406) NIL Gonococcus, Nuc. Acid Amp (test Negative Negative code = 61692507) Chlamydia, Nuc. Acid Amp (test Negative Negative code = 45638277) Category: (test code = 31790282) Deidra Dimas 06/23/2016 12:03:20 AM >\X0A\Thad Ventura 06/23/2016 4:28:50 PM > Called pt no ans wer could not leave message.\X0A\Bel l,Bel 98n for appt t gregory. 3:42:58 PM > Pt came i Interpretation (test code = Deidra Palacios 06/23/2016 [id number]) 12:03:20 AM >\X0A\Thad Ventura 06/23/2016 4:28:50 PM > Called pt no ans wer could not leave message.\X0A\Bel l,Bel 98n for appt t gregory. 3:42:58 PM > Pt came i Adequacy: (test code = 42951184) Deidra Pettit 06/23/2016 12:03:20 AM >\X0A\Thad Ventura 06/23/2016 4:28:50 PM > Called pt no ans wer could not leave message.\X0A\Bel l,Bel 98n for appt t gregory. 3:42:58 PM > Pt came i Gonococcus, Nuc. Acid Amp (test Negative Negative Deidra Carolina 06/23/2016 code = 41056373) 12:03:20 AM >\X0A\Thad Ventura 06/23/2016 4:28:50 PM > Called pt no ans wer could not leave message.\X0A\Bel lBel 98n for appt t gregory. 3:42:58 PM > Pt came i Chlamydia, Nuc. Acid Amp (test Negative Negative Deidra Staton 06/23/2016 code = 26395395) 12:03:20 AM >\X0A\Thad Ventura 06/23/2016 4:28:50 PM > Called pt no ans wer could not leave message.\X0A\Bel l,Bel 98n for appt t gregory. 3:42:58 PM > Pt came i Urinalysis with Culture [id number] 20:16:00 Test Item Value Reference Range Comments Leukocyte Esterase, UA (test code = Leukocyte 500 /mcL Ne gative /mcL Esterase, UA) Specific [place], Urine (test code = Specific 1.022 1. 002-1.03 [place], Urine) Clarity/A (test code = Clarity/A) Clear Clear URINE PH (test code = URINE PH) 7 Nitrite, Urine (test code = Nitrite, Urine) Negative Nega tive Urine-Color (test code = Urine-Color) Yellow Yellow Blood, Urine (test code = Blood, Urine) Negative Negative /mcL Urobilinogen, UA (test code = Urobilinogen, UA) Normal Normal mg/dL Bilirubin Urine (test code = Bilirubin Urine) Negative Ne gative mg/dL Protein, Ur (test code = Protein, Ur) Negative Negative m g/dL Glucose, Urine (test code = Glucose, Urine) Normal Norm al mg/dL Ketones, Urine (test code = Ketones, Urine) Negative Nega tive mg/dL Comp. Metabolic Panel (14)2016-03-23 00:00:00 Test Item Value Reference Range Comments AST (SGOT) (test code = 20 IU/L 0-40 [facility] 04/10/2016 168857) 10:40:43 AM > ALT (SGPT) (test code = 14 IU/L 0-32 [facility] 04/10/2016 819812) 10:40:43 AM > Carbon Dioxide, Total (test 23 mmol/L 18-29 [facility] 04/10/2016 code = 573711) 10:40:43 AM > Bilirubin, Total (test code 0.2 mg/dL 0.0-1.2 [facility] 04/10/2016 = 943382) 10:40:43 AM > eGFR If NonAfricn Am (test 103 mL/min/1.73 >59 [facility] 04/10/2016 code = 702941) 10:40:43 AM > A/G Ratio (test code = 1.4 1.1-2.5 [facility] 04/10/2016 496490) 10:40:43 AM > Globulin, Total (test code 3.0 g/dL 1.5-4.5 [facility] 04/10/2016 = 855684) 10:40:43 AM > Creatinine, Serum (test 0.77 mg/dL 0.57-1.00 [facility] 04/10/2016 code = 485283) 10:40:43 AM > Potassium, Serum (test code 4.4 mmol/L 3.5-5.2 Ty Anna Marie johnson 04/10/2016 = 260642) 10:40:43 AM > Chloride, Serum (test code 100 mmol/L 97-108 MassimoAnna Marie [facility] 04/10/2016 = 703168) 10:40:43 AM > Glucose, Serum (test code = 84 mg/dL 65-99 Ty Edgardo johnson04/10/2016 630406) 10:40:43 AM > Alkaline Phosphatase, S 61 IU/L 39-117 [facility] 04/10/2016 (test code = 367471) 10:40:43 AM > Sodium, Serum (test code = 140 mmol/L 134-144 Massimo Anna Marie 04/10/2016 273835) 10:40:43 AM > Calcium, Serum (test code = 9.4 mg/dL 8.7-10.2 Ty Hayley johnsonAnna Marie D 04/10/2016 109804) 10:40:43 AM > BUN/Creatinine Ratio (test 18 8-20 Anna Marie Keys 04/10/2016 code = 781276) 10:40:43 AM > Protein, Total, Serum (test 7.3 g/dL 6.0-8.5 [facility] Hayley johnsonAnna Marie D 04/10/2016 code = 261861) 10:40:43 AM > Albumin, Serum (test code = 4.3 g/dL 3.5-5.5 Ty Anna Marie johnson 04/10/2016 812283) 10:40:43 AM > BUN (test code = 963143) 14 mg/dL 6-20 MassimoDanyel grove04/10/2016 10:40:43 AM > eGFR If Africn Am (test 119 mL/min/1.73 >59 [facility] 04/10/2016 code = 127339) 10:40:43 AM > CBC With Differential/[id number] 00:00:00 Test Item Value Reference Range Comments WBC (test code = 668139) 4.8 x10E3/uL 3.4-10.8 [facility]2016 9:44:26 PM >\X000d\\X0A\Bel l,[facility] 04/16/2016 9: 49:40 AM > Eos (Absolute) (test code = 0.1 x10E3/uL 0.0-0.4 [facility] 04/15/2016 943907) 9:44:26 PM >\X000d\\X0A\Bel l,[facility] 04/16/2016 9: 49:40 AM > RDW (test code = 865663) 12.8 % 12.3-15.4 [facility]ño[facility] 04/15/2016 9:44:26 PM >\X000d\\X0A\Bel l,[facility] 04/16/2016 9: 49:40 AM > RBC (test code = 623716) 4.31 x10E6/uL 3.77-5.28 [facility]ño[facility] 04/15/2016 9:44:26 PM >\X000d\\X0A\[facility] 9: 49:40 AM > Neutrophils (test code = 39 % [facility]añoAt[facility] 04/15/2016 284878) 9:44:26 PM >\X000d\\X0A\Bel l,[facility] 04/16/2016 9: 49:40 AM > Neutrophils (Absolute) (test 1.9 x10E3/uL 1.4-7.0 Kyrie goldmanAt[facility] Health [facility] 04/15/2016 code = 040505) 9:44:26 PM >\X000d\\X0A\Bel l,[facility] 04/16/2016 9: 49:40 AM > Immature Grans (Abs) (test 0.0 x10E3/uL 0.0-0.1 Derek loredoAt[facility] 04/15/2016 code = 494407) 9:44:26 PM >\X000d\\X0A\Bel l,[facility] 04/16/2016 9: 49:40 AM > Monocytes(Absolute) (test code 0.4 x10E3/uL 0.1-0.9 A luzmariaAtrium Health [facility]ly 04/15/2016 = 103321) 9:44:26 PM >\X000d\\X0A\Bel l,[facility] 04/16/2016 9: 49:40 AM > Immature Granulocytes (test 0 % [facility]irstonAt[facility] 04/15/2016 code = 937810) 9:44:26 PM >\X000d\\X0A\Bel l,[facility] 04/16/2016 9: 49:40 AM > Hematocrit (test code = 37.5 % 34.0-46.6 [facility]At[facility] 04/15/2016 973277) 9:44:26 PM >\X000d\\X0A\Bel l,[facility] 04/16/2016 9: 49:40 AM > MCHC (test code = 144246) 33.1 g/dL 31.5-35.7 Jayme [facility] 04/15/2016 9:44:26 PM >\X000d\\X0A\Bel l,[facility] 04/16/2016 9: 49:40 AM > Eos (test code = 688956) 2 % Imtiaz [facility]año[facility] 04/15/2016 9:44:26 PM >\X000d\\X0A\Bel l,[facility] 04/16/2016 9: 49:40 AM > Hemoglobin (test code = 12.4 g/dL 11.1-15.9 [facility] 04/15/2016 990740) 9:44:26 PM >\X000d\\X0A\Bel l,[facility] 04/16/2016 9: 49:40 AM > Baso (Absolute) (test code = 0.0 x10E3/uL 0.0-0.2 Kyrie goldmanAt[facility] Health [facility] 04/15/2016 445953) 9:44:26 PM >\X000d\\X0A\Bel l,[facility] 04/16/2016 9: 49:40 AM > Platelets (test code = 695459) 211 x10E3/uL 150-379 [facility] 04/15/2016 9:44:26 PM >\X000d\\X0A\Bel l,[facility] 04/16/2016 9: 49:40 AM > MCV (test code = 598255) 87 fL 79-97 Imtiaz montañoDeidra 04/15/2016 9:44:26 PM >\X000d\\X0A\Bel l,[facility] 04/16/2016 9: 49:40 AM > Lymphs (Absolute) (test code = 2.4 x10E3/uL 0.7-3.1 Sophia duttaAt[facility] Health [facility] 04/15/2016 533645) 9:44:26 PM >\X000d\\X0A\Bel l,[facility] 04/16/2016 9: 49:40 AM > Monocytes (test code = 894322) 8 % Sophia duttaDeidra 04/15/2016 9:44:26 PM >\X000d\\X0A\Bel l,[facility] 04/16/2016 9: 49:40 AM > Lymphs (test code = 554549) 51 % [facility]onHarris [facility] 04/15/2016 9:44:26 PM >\X000d\\X0A\[facility]/16[facility]2016 9: 49:40 AM > MCH (test code = 051775) 28.8 pg 26.6-33.0 Imtiaz montañoDeidra 04/15/2016 9:44:26 PM >\X000d\\X0A\Bel l,[facility] 04/16/2016 9: 49:40 AM > Basos (test code = 132981) 0 % Derek loredoAt[facility] Health [facility] 04/15/2016 9:44:26 PM >\X000d\\X0A\Bel l,[facility] 04/16/2016 9: 49:40 AM > Hemoglobin [id number] 00:00:00 Test Item Value Reference Range Comments Hemoglobin A1c (test code = 5.6 % 4.8-5.6 [facility] hairstonAt[facility] Health [facility] 04/15/2016 795280) 9:44:26 PM >\X000d\\X0A\[facility] 9:49:3 4 AM > Testosterone, [id number] 00:00:00 Test Item Value Reference Range Comments Testosterone, Serum (test 69 ng/dL 8-48 patien t might have PCOS code = 428932) Deidra Carolina 9:44:26 PM >\X0AJennifer Albright 04/16/2016 9:49:0 9 AM >\X0AJosyVenturaThad 05/07/2016 5:56:01 PM > Pt had appt in office. Urinalysis with [id number] 07:41:00 Test Item Value Reference Range Comments Specific [place], Urine (test code = Specific 1.008 1. 002-1.03 [place], Urine) URINE PH (test code = URINE PH) 7 Nitrite, Urine (test code = Nitrite, Urine) Negative Nega tive Clarity/A (test code = Clarity/A) Clear Clear Urine-Color (test code = Urine-Color) Pale Yellow Yellow Leukocyte Esterase, UA (test code = Leukocyte Negative Ne gative /mcL Esterase, UA) Blood, Urine (test code = Blood, Urine) Negative Negative /mcL Urobilinogen, UA (test code = Urobilinogen, UA) Normal Normal mg/dL Bilirubin Urine (test code = Bilirubin Urine) Negative Ne gative mg/dL Glucose, Urine (test code = Glucose, Urine) Normal Norm al mg/dL Protein, Ur (test code = Protein, Ur) Negative Negative m g/dL Ketones, Urine (test code = Ketones, Urine) Negative Nega tive mg/dL CBC w/ [id number] 23:02:00 Test Item Value Reference Range Comments MCHC (test code = MCHC) 31.9 gm/dL 32.0- 36.5 gm/dL Differential (test code = Auto Only Differential) WBC (test code = WBC) 5.9 x10(3)/mcL 4.0- 10.0 x10(3)/mcL SYSTEM FLAG (test code = SYSTEM FLAG) SUSPECT FLAG (test code = SUSPECT FLAG) Differential Comment (test code = Differential Comment) Differential Comments (test code = Differential Comments) HGB (test code = HGB) 12.0 gm/dL 12.0- 15.5 gm/dL MCH (test code = MCH) 28.3 pg 26.0- 34.0 pg RDW-SD (test code = RDW-SD) 39.8 fL 35.0- 47.0 fL MPV (test code = MPV) 9.5 fL 9.0- 12.4 fL MCV (test code = MCV) 88.8 fL 80.0- 99.0 fL Red Blood Cells (test code = Red 4.24 x10(6)/mcL 4.0- 5.4 x10(6) /mcL Blood Cells) Platelets (test code = Platelets) 190 x10(3)/mcL 150.0- 450.0 x 10(3)/mcL RDW (test code = RDW) 12.8 % 11.5- 14.5 % HCT (test code = HCT) 37.7 % 35.0- 46.0 % nRBC (test code = nRBC) 0.1 /100 WBC 0.0- 0.0 /100 WBC Nucleated RBC (test code = Nucleated 0.01 x10(3)/mcL 0.0- 0.0 x1 0(3)/mcL RBC) Urinalysis with Culture [id number] 21:27:00 Test Item Value Reference Range Comments Leukocyte Esterase, UA (test code = Leukocyte 25 /mcL Ne gative /mcL Esterase, UA) Specific [place], Urine (test code = Specific 1.017 1. 002-1.03 [place], Urine) Clarity/A (test code = Clarity/A) Clear Clear URINE PH (test code = URINE PH) 6.5 Nitrite, Urine (test code = Nitrite, Urine) Negative Nega tive Urine-Color (test code = Urine-Color) Yellow Yellow Blood, Urine (test code = Blood, Urine) Negative Negative /mcL Urobilinogen, UA (test code = Urobilinogen, UA) Normal Normal mg/dL Bilirubin Urine (test code = Bilirubin Urine) Negative Ne gative mg/dL Protein, Ur (test code = Protein, Ur) Negative Negative m g/dL Glucose, Urine (test code = Glucose, Urine) Normal Norm al mg/dL Ketones, Urine (test code = Ketones, Urine) Negative Nega tive mg/dL [id number] 07:18:00 Test Item Value Reference Range Comments WBC (test code = WBC) 4.5 x10(3)/mcL 4.0- 10.0 x10(3)/mcL HGB (test code = HGB) 12.6 gm/dL 12.0- 15.5 gm/dL MCHC (test code = MCHC) 32.3 gm/dL 32.0- 36.5 gm/dL MCH (test code = MCH) 28.3 pg 26.0- 34.0 pg RDW-SD (test code = RDW-SD) 38.1 fL 35.0- 47.0 fL MPV (test code = MPV) 9.3 fL 9.0- 12.4 fL MCV (test code = MCV) 87.6 fL 80.0- 99.0 fL Red Blood Cells (test code = Red 4.45 x10(6)/mcL 4.0- 5.4 x10(6) /mcL Blood Cells) Platelets (test code = Platelets) 170 x10(3)/mcL 150.0- 450.0 x 10(3)/mcL RDW (test code = RDW) 12.5 % 11.5- 14.5 % HCT (test code = HCT) 39.0 % 35.0- 46.0 % Comprehensive Metabolic [id number] 07:18:00 Test Item Value Reference Range Comments Albumin (test code = Albumin) 4.3 gm/dL 3.5- 5.2 gm/dL Total Protein (test code = Total Protein) 6.9 gm/dL 6.0- 8 .5 gm/dL Sodium (test code = Sodium) 140.0 mmol/L 135.0- 145.0 mmol/L Chloride (test code = Chloride) 100.0 mmol/L 95.0- 108.0 mmol /L ASPARTATE AMINOTRANSFERASE (test code = 18 IU/L 11.0- 35 .0 IU/L ASPARTATE AMINOTRANSFERASE) Potassium (test code = Potassium) 4.5 mmol/L 3.5- 5.0 mmol/ L Alkaline Phosphatase (test code = Alkaline 60.0 IU/L 39.0- 117.0 IU/L Phosphatase) Alanine Aminotransferase (test code = 12 IU/L 10.0- 40.0 IU/L Alanine Aminotransferase) CO2 (test code = CO2) 26.7 mmol/L 21.0- 30.0 mmol/L Glucose (test code = Glucose) 86.0 mg/dL 70.0- 110.0 mg/dL Total Bilirubin (test code = Total 0.3 mg/dL 0.2- 1.4 mg/d L Bilirubin) BUN (test code = BUN) 14 mg/dL 5.0- 23.0 mg/dL Calcium (test code = Calcium) 9.4 mg/dL 8.4- 10.2 mg/dL Creatinine (test code = Creatinine) 0.83 mg/dL 0.44- 1.0 mg /dL Anion Gap (test code = Anion Gap) 18.0 mmol/L 10.0- 17.0 mmo l/L Urine [id number] 17:20:00 Test Item Value Reference Range Comments Final Report (test code = Final Report) FINAL: No growth Amended Report (test code = Amended Report) Urinalysis with Culture [id number] 15:14:00 Test Item Value Reference Range Comments Urine-Color (test code = Urine-Color) Yellow Yellow Clarity/A (test code = Clarity/A) Clear Clear Specific [place], Urine (test code = Specific 1.01 1. 002-1.03 [place], Urine) URINE PH (test code = URINE PH) 6 Leukocyte Esterase, UA (test code = Leukocyte Negative Ne gative /mcL Esterase, UA) Nitrite, Urine (test code = Nitrite, Urine) Negative Nega tive Protein, Ur (test code = Protein, Ur) Negative Negative m g/dL Glucose, Urine (test code = Glucose, Urine) Normal Norm al mg/dL Ketones, Urine (test code = Ketones, Urine) 150 mg/dL Nega tive mg/dL Urobilinogen, UA (test code = Urobilinogen, UA) Normal Normal mg/dL Bilirubin Urine (test code = Bilirubin Urine) Negative Ne gative mg/dL Blood, Urine (test code = Blood, Urine) Negative Negative /mcL Assessments Condition Name Status Diagnosis Date Treating Clinici an Gastro-esophageal reflux disease without Active esophagitis Other specified noninflammatory disorders of Active vagina Cerebral palsy, unspecified Active Stress incontinence (female) (male) Active Encntr for general adult medical exam w/o Active abnormal findings Oth symptoms and signs involving the Active musculoskeletal system Cerebral palsy, unspecified Active Gender identity disorder, unspecified Active Cerebral palsy, unspecified Active Transsexualism Active Constipation, unspecified Active Gastro-esophageal reflux disease without Active esophagitis Schizoaffective disorder, unspecified Active Bipolar disorder, unspecified Active Unspecified intellectual disabilities Active Patient's other noncompliance with Active medication regimen Homicidal ideations Active Hermaphroditism, 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 Cerebral palsy, unspecified Active Hypothyroidism, unspecified Active Personal history of transient ischemic Active attack (TIA), and cerebral infarction without residual deficits Other long-term (current) drug therapy Active Schizophrenia, unspecified Active Allergy status to penicillin Active Allergy status to sulfonamides status Active Schizoaffective disorder, unspecified Active Patient's other noncompliance with Active medication regimen Hypothyroidism, unspecified Active Cerebral palsy, unspecified Active Personal history of neglect in childhood Active Hyperlipidemia, unspecified Active Polycystic ovarian syndrome Active Other long-term (current) drug therapy Active Pain in right leg Active Encounter for other specified aftercare Active Schizoaffective disorder, bipolar type Active Encounter for other specified aftercare Active Other long-term (current) drug therapy Active Mixed incontinence Active Other malaise Active Encounter for screening for other suspected Active endocrine disorder Pain of left leg Active Atopic dermatitis, unspecified type Active Nail atrophy Active N39.46 Active L20.9 Active L60.3 Active M79.604 Active Schizoaffective disorder, unspecified Active Other cerebral palsy Active Primary generalized (osteo)arthritis Active Other muscle spasm Active Pain in right leg Active Headache Active Gastro-esophageal reflux disease without Active esophagitis Headache Active Urinary tract infection, site not specified Active Dehydration Active Cerebral palsy, unspecified Active Schizoaffective disorder, unspecified Active 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 Gastro-esophageal reflux disease without Active esophagitis Acne, unspecified Active Unspecified urinary incontinence Active M15.0 Active M62.838 Active F25.9 Active G80.8 Active Schizoaffective disorder, unspecified Active Other cerebral palsy Active Acne, unspecified Active Primary generalized (osteo)arthritis Active Other muscle spasm Active Unspecified urinary incontinence Active Schizoaffective disorder, unspecified Active Other specified infantile cerebral palsy Active Allergic rhinitis due to animal (cat) (dog) Active hair and dander Allergic rhinitis due to other allergen Active Esophageal reflux Active Unspecified constipation Active Absence of menstruation Active Irregular menstrual cycle Active Spasm of muscle Active Other malaise and fatigue Active Nocturia Active Screening examination for venereal disease Active Screening for thyroid disorder Active Screening for diabetes mellitus Active Screening for lipoid disorders Active Schizoaffective disorder, unspecified Active Other specified infantile cerebral palsy Active Allergic rhinitis due to animal (cat) (dog) Active hair and dander Allergic rhinitis due to other allergen Active Esophageal reflux Active Unspecified constipation Active Absence of menstruation Active Irregular menstrual cycle Active Spasm of muscle Active Other malaise and fatigue Active Nocturia Active Screening examination for venereal disease Active Screening for thyroid disorder Active Screening for diabetes mellitus Active Screening for lipoid disorders Active Schizoaffective disorder, unspecified Active Other specified infantile cerebral palsy Active Allergic rhinitis due to animal (cat) (dog) Active hair and dander Allergic rhinitis due to other allergen Active Esophageal reflux Active Unspecified constipation Active Absence of menstruation Active Irregular menstrual cycle Active Spasm of muscle Active Other malaise and fatigue Active Nocturia Active Screening examination for venereal disease Active Screening for thyroid disorder Active Screening for diabetes mellitus Active Screening for lipoid disorders Active Schizoaffective disorder, unspecified Active Other specified infantile cerebral palsy Active Allergic rhinitis due to animal (cat) (dog) Active hair and dander Allergic rhinitis due to other allergen Active Esophageal reflux Active Unspecified constipation Active Absence of menstruation Active Irregular menstrual cycle Active Spasm of muscle Active Other malaise and fatigue Active Nocturia Active Screening examination for venereal disease Active Screening for thyroid disorder Active Screening for diabetes mellitus Active Screening for lipoid disorders Active Irregular menstrual cycle Active Absence of menstruation Active Nocturia Active Allergic rhinitis due to other allergen Active Schizoaffective disorder, unspecified Active Other specified infantile cerebral palsy Active Allergic rhinitis due to animal (cat) (dog) Active hair and dander Esophageal reflux Active Unspecified constipation Active Spasm of muscle Active Other malaise and fatigue Active Screening examination for venereal disease Active Screening for thyroid disorder Active Screening for diabetes mellitus Active Screening for lipoid disorders Active Schizoaffective disorder, unspecified Active Other specified infantile cerebral palsy Active Allergic rhinitis due to animal (cat) (dog) Active hair and dander Allergic rhinitis due to other allergen Active Esophageal reflux Active Unspecified constipation Active Absence of menstruation Active Irregular menstrual cycle Active Spasm of muscle Active Other malaise and fatigue Active Nocturia Active Screening examination for venereal disease Active Screening for thyroid disorder Active Screening for diabetes mellitus Active Screening for lipoid disorders Active Encounters Start End Encounter Admission Attending Care Care Encounter Date/Time Date/Time Type Type Clinicians Facility Department ID 2019-11-24 2019-11-24 Outpatient Bundle, [facility] 43 [id number] 09:30:00 09:30:00 Yelitza Children [id number] s [id number] and EEE Mult[facility]pecialt y Clinic, 2019-08-24 2019-08-24 Outpatient Bundle, [facility] A0 [id number] 09:30:00 09:30:00 Yelitza Children [id number] s [id number] and [id number] Multispecialt y Clinic, 2019-07-05 2019-07-05 Outpatient Bundle, [facility] BF [id number] 10:15:00 10:15:00 Yelitza Children???s [id number] C2 and [id number] Multispecialt EF9 y Clini 2019-05-19 2019-05-19 Outpatient [facility] [id number] 12:43:11 14:06:07 [id number] 2019-05-19 2019-05-19 [facility] [id number] 12:43:11 14:06:07 2019-05-19 2019-05-19 Outpatient [facility] [id number] 00:00:00 00:00:00 [id number] 2018-12-20 2018-12-20 Outpatient [facility] [id number] 00:00:00 00:00:00 [id number] 2018-11-15 2018-11-15 [facility] [id number] 00:00:00 00:00:00 2018-11-04 2018-11-04 Outpatient [facility] [id number]_ 08:31:17 23:59:00 [id number] 2018-11-04 2018-11-04 Outpatient [facility] [id number] 00:00:00 00:00:00 [id number] 2018-11-04 2018-11-04 [facility] [id number] 00:00:00 00:00:00 2018-08-11 2018-08-11 [facility] [id number] 00:00:00 00:00:00 2018-08-08 2018-08-08 [facility] [id number] 00:00:00 00:00:00 2018-08-08 2018-08-08 [facility] [id number] 00:00:00 00:00:00 2018-08-05 2018-08-05 Outpatient [facility] [id number] 10:15:57 12:27:00 [id number] 2018-08-05 2018-08-05 [facility] [id number] 10:15:57 12:27:00 2018-08-05 2018-08-05 Outpatient [facility] [id number] 00:00:00 00:00:00 [id number] 2018-08-05 2018-08-05 [facility] [id number] 00:00:00 00:00:00 2018-08-05 2018-08-05 [facility] [id number] 00:00:00 00:00:00 2018-01-28 2018-01-28 Outpatient [facility] [id number] 09:49:33 11:10:22 [id number] 2017-08-02 2017-08-02 Outpatient [facility] [id number] 14:35:57 15:27:29 [id number] 2017-08-02 2017-08-02 Outpatient [facility] [id number] 00:00:00 00:00:00 [id number] 2017-07-29 Outpatient UR SATHYA Acosta [id number] 12:02:00 06:56:00 Flakito 2017-07-28 2017-07-28 [facility] [id number] 00:00:00 00:00:00 2017-07-27 2017-07-27 [facility] [id number] 00:00:00 00:00:00 2017-07-16 2017-07-16 [facility] [id number] 00:00:00 00:00:00 2017-07-05 2017-07-05 Outpatient [facility] [id number] 09:01:40 10:25:14 [id number] 2017-07-05 2017-07-05 Outpatient [facility] [id number] 00:00:00 00:00:00 [id number] 2017-05-17 Outpatient [facility] [id number] 00:00:00 00:00:00 [id number] 2016-08-18 2016-10-07 Outpatient [facility] [id number] 09:45:07 09:48:28 [id number] 2016-09-01 2016-09-25 Inpatient RYDER Romeo RYDER [id number] 11:54:58 16:21:00 Stephanieandre 2016-09-25 2016-09-25 [facility] [id number] 00:00:00 00:00:00 2016-09-23 2016-09-23 [facility] [id number] 00:00:00 00:00:00 2016-09-16 2016-09-16 [facility] [id number] 00:00:00 00:00:00 2016-09-08 2016-09-08 [facility] [id number] 00:00:00 00:00:00 2016-09-02 2016-09-02 [facility] [id number] 00:00:00 00:00:00 2016-09-02 2016-09-02 [facility] [id number] 00:00:00 00:00:00 2016-07-28 2016-09-01 RYDER Hawley [id number] 10:00:00 16:51:00 Deidra 2016-09-01 2016-09-01 [facility] [id number] 00:00:00 00:00:00 2016-09-01 2016-09-01 [facility] [id number] 00:00:00 00:00:00 2016-08-31 2016-08-31 [facility] [id number] 00:00:00 00:00:00 2016-08-31 2016-08-31 [facility] [id number] 00:00:00 00:00:00 2016-07-19 2016-08-27 Outpatient [facility]ICK [facility]ADILL[facility] [id number] 10:11:36 10:34:54 TONY [id number] 2016-08-24 2016-08-24 Emergency Suha Watkins SOLER [id number] 13:06:00 17:25:00 2016-08-24 2016-08-24 [facility] [id number] 00:00:00 00:00:00 2016-08-24 2016-08-24 [facility] [id number] 00:00:00 00:00:00 2016-08-15 2016-08-21 Inpatient RYDER Romeo [id number] 18:07:59 21:00:00 Tony 2016-08-21 2016-08-21 [facility] [id number] 00:00:00 00:00:00 2016-08-18 2016-08-18 Outpatient [facility] [id number] 00:00:00 00:00:00 [id number] 2016-08-16 [facility] [id number] 00:00:00 00:00:00 2016-08-16 2016-08-16 [facility] [id number] 00:00:00 00:00:00 2016-08-15 2016-08-15 [facility] [id number] 00:00:00 00:00:00 2016-08-14 2016-08-14 [facility] [id number] 00:00:00 00:00:00 2016-08-14 2016-08-14 [facility] [id number] 00:00:00 00:00:00 2016-07-19 2016-07-19 Outpatient [facility]ADILLA [facility] [id number] 00:00:00 00:00:00 TONY [id number] 2016-07-09 [facility] [id number] 00:00:00 00:00:00 2016-03-26 2016-03-26 Emergency RYDER Jacinto [id number] 19:04:00 23:03:00 Talib 2016-03-26 2016-03-26 [facility] [id number] 00:00:00 00:00:00 2016-03-26 2016-03-26 [facility] [id number] 00:00:00 00:00:00 2016-03-23 2016-03-23 Outpatient [place] [id number] 00:00:00 00:00:00 [facility] 2016-02-11 2016-02-12 Emergency E BobRYDER finnegan [id number] 22:10:00 12:35:00 Kilo 2016-02-12 2016-02-12 [facility] [id number] 00:00:00 00:00:00 2016-02-11 2016-02-11 [facility] [id number] 00:00:00 00:00:00 2016-01-16 2016-01-17 Emergency E RYDER [place] [id number] 19:51:00 04:37:00 [place] 2016-01-16 2016-01-16 [facility] [id number] 00:00:00 00:00:00 2016-01-16 2016-01-16 [facility] [id number] 00:00:00 00:00:00 2015-12-06 2015-12-06 Outpatient Erlin, [facility] [id number] 00:00:00 00:00:00 [facility] 2015-11-19 2015-11-19 [facility] [id number] 00:00:00 00:00:00 2015-07-05 2015-07-05 [facility] [id number] 00:00:00 00:00:00 2015-07-05 2015-07-05 [facility] [id number] 00:00:00 00:00:00 2015-06-10 2015-06-10 [facility] [id number] 00:00:00 00:00:00 2015-06-10 2015-06-10 [facility] [id number] 00:00:00 00:00:00 2015-05-29 2015-05-29 Outpatient [place] [id number] 00:00:00 00:00:00 [facility] 2013-08-29 2013-08-29 [facility] [id number] 00:00:00 00:00:00 2013-08-25 2013-08-25 Outpatient [facility] [id number] 00:00:00 00:00:00 Payers Payer Name Policy Type Policy Number Effective Date Expiration D [facility] [id number] 2017 00:00:00 RESIDENT MEDICAID SAYRE [id number] 2016 00:00:00 ACCESS MEDICAID E GAGE [id number] 2016 00:00:00 [facility] Plan of Treatment Planned Activity Planned Date Details Comments Future Scheduled Test [code = ] Future Scheduled Test [code = ] Future Scheduled Test [code = ] Future Scheduled Test [code = ] Future Scheduled Test [code = ] Future Scheduled Test [code = ] Future Scheduled Test [code = ] Social History Social Habit Start Date Stop Date Comments History of tobacco use Alcohol intake Tobacco smoking status SDIS 2019-05-19 00:00:00 2019-05-19 00:00 :00 Cigarettes smoked current (pack per 2019-05-19 00:00:00 00:00:00 day) - Reported Cigarette pack-years 2019-05-19 00:00:00 2019-05-19 00:00:00 Vital Signs Vital Name Observation Time Observation Value Comments Systolic blood pressure 2019-05-19 13:40:00 136 mm[Hg] Diastolic blood pressure 2019-05-19 13:40:00 69 mm[Hg] Heart rate 2019-05-19 13:40:00 104 /min Respiratory rate 2019-05-19 13:40:00 18 /min Body height 2019-05-19 13:40:00 167.6 cm Body weight 2019-05-19 13:40:00 81.647 kg SYSTOLIC BLOOD PRESSURE 2018-08-05 11:11:00 137 mm[Hg] DIASTOLIC BLOOD PRESSURE 2018-08-05 11:11:00 96 mm[Hg] HEART RATE 2018-08-05 11:11:00 110 /min WEIGHT 2018-08-05 11:11:00 84.732 kg SYSTOLIC BLOOD PRESSURE 2016-09-25 08:57:10 143 mm[Hg] DIASTOLIC BLOOD PRESSURE 2016-09-25 08:57:10 84 mm[Hg] WEIGHT 2016-09-16 06:24:42 91.6 kg HEIGHT 2016-09-01 10:46:08 165.1 cm SYSTOLIC BLOOD PRESSURE 2016-08-24 15:58:27 136 mm[Hg] DIASTOLIC BLOOD PRESSURE 2016-08-24 15:58:27 96 mm[Hg] SYSTOLIC BLOOD PRESSURE 2016-08-21 21:40:17 137 mm[Hg] DIASTOLIC BLOOD PRESSURE 2016-08-21 21:40:17 81 mm[Hg] HEIGHT 2016-08-15 21:23:19 165.1 cm WEIGHT 2016-08-15 21:23:19 90.8 kg SYSTOLIC BLOOD PRESSURE 2016-03-26 22:34:32 137 mm[Hg] DIASTOLIC BLOOD PRESSURE 2016-03-26 22:34:32 101 mm[Hg] SYSTOLIC BLOOD PRESSURE 2016-02-12 12:42:31 118 mm[Hg] DIASTOLIC BLOOD PRESSURE 2016-02-12 12:42:31 76 mm[Hg] SYSTOLIC BLOOD PRESSURE 2016-01-17 04:36:20 128 mm[Hg] DIASTOLIC BLOOD PRESSURE 2016-01-17 04:36:20 84 mm[Hg] SYSTOLIC BLOOD PRESSURE 2015-07-15 07:38:03 143 mm[Hg] DIASTOLIC BLOOD PRESSURE 2015-07-15 07:38:03 89 mm[Hg] HEIGHT 2015-07-05 22:19:10 162.5 cm WEIGHT 2015-07-05 22:19:10 83.7 kg SYSTOLIC BLOOD PRESSURE 2015-07-01 08:29:48 149 mm[Hg] DIASTOLIC BLOOD PRESSURE 2015-07-01 08:29:48 84 mm[Hg] HEIGHT 2015-06-11 11:08:45 157.5 cm WEIGHT 2015-06-11 11:08:45 82.3 kg SYSTOLIC BLOOD PRESSURE 2013-08-29 18:27:45 127 mm[Hg] DIASTOLIC BLOOD PRESSURE 2013-08-29 18:27:45 81 mm[Hg] SYSTOLIC BLOOD PRESSURE 2013-08-25 17:00:39 122 mm[Hg] DIASTOLIC BLOOD PRESSURE 2013-08-25 17:00:39 84 mm[Hg]
== END ==
LOC: OD 11:59
PROVIDERS: ATTEND Nurse Practitioner Psychiatric/Mental Health
DX: F25.0 Schizoaffective disorder, bipolar type (principal)
CPT/HCPCS: 36415; 80159; 85025

== ENCOUNTER → 2020-09-23 | Outpatient (CLI) | payer MEDICAID ==
[2020-09-23 10:43] LABS: ABSOLUTE EOSINOPHILS # (AUTO) 0.1 10^3/uL (0.0-0.6); ABSOLUTE LYMPHOCYTES (AUTO) 1.6 10^3/uL (0.5-4.7); ABSOLUTE MONOCYTES (AUTO) 0.4 10^3/uL (0.1-1.4); ABSOLUTE NEUT (AUTO) 2.4 10^3/uL (1.7-8.2); BASOPHILS % (AUTO) 0.6 % (0-2); HEMATOCRIT 37.2 % (36.0-47.0); HEMOGLOBIN 12.2 g/dL (12.0-15.5); LYMPHOCYTES % (AUTO) 34.6 % (13-45); MEAN CORPUSCULAR HEMOGLOBIN 28.3 pg (27.0-33.4); MEAN CORPUSCULAR HGB CONC 32.8 g/dL (32.0-36.0); MEAN CORPUSCULAR VOLUME 86 fl (80-97); MONOCYTES % (AUTO) 8.6 % (3-13); PLATELET COUNT 208 10^3/uL (150-450); RED BLOOD COUNT 4.31 10^6/uL (3.72-5.28); RED CELL DISTRIBUTION WIDTH 13.4 % (11.5-14.0); SEGMENTED NEUTROPHILS % (AUTO) 53.2 % (42-78); TOTAL CELLS COUNTED % (AUTO) 100 %; WHITE BLOOD COUNT 4.5 10^3/uL (4.0-10.5)
== END ==
LOC: OD 09:55
PROVIDERS: ATTEND Physician Assistant
DX: F25.0 Schizoaffective disorder, bipolar type (principal); Z79.899 Other long term (current) drug therapy
CPT/HCPCS: 36415; 85025

== ENCOUNTER → 2020-10-21 | Outpatient (CLI) | payer MEDICAID ==
[2020-10-21 12:27] LABS: ABSOLUTE EOSINOPHILS # (AUTO) 0.1 10^3/uL (0.0-0.6); ABSOLUTE LYMPHOCYTES (AUTO) 1.9 10^3/uL (0.5-4.7); ABSOLUTE MONOCYTES (AUTO) 0.6 10^3/uL (0.1-1.4); ABSOLUTE NEUT (AUTO) 5.7 10^3/uL (1.7-8.2); BASOPHILS % (AUTO) 0.4 % (0-2); EOSINOPHILS % (AUTO) 0.8 % (0-6); HEMATOCRIT 38.6 % (36.0-47.0); HEMOGLOBIN 12.5 g/dL (12.0-15.5); LYMPHOCYTES % (AUTO) 23.2 % (13-45); MEAN CORPUSCULAR HEMOGLOBIN 27.7 pg (27.0-33.4); MEAN CORPUSCULAR HGB CONC 32.5 g/dL (32.0-36.0); MEAN CORPUSCULAR VOLUME 85 fl (80-97); PLATELET COUNT 216 10^3/uL (150-450); RED BLOOD COUNT 4.53 10^6/uL (3.72-5.28); RED CELL DISTRIBUTION WIDTH 13.3 % (11.5-14.0); SEGMENTED NEUTROPHILS % (AUTO) 68.6 % (42-78); TOTAL CELLS COUNTED % (AUTO) 100 %; WHITE BLOOD COUNT 8.3 10^3/uL (4.0-10.5)
== END ==
LOC: OD 10:46
PROVIDERS: ATTEND Physician Assistant
DX: F25.0 Schizoaffective disorder, bipolar type (principal); Z79.899 Other long term (current) drug therapy
CPT/HCPCS: 36415; 85025